=== PATIENT | male | born 1965 | race Caucasian/White ===

== ENCOUNTER 2016-08-10 09:24 | Observation (INO) | payer BC, OTHER ==
[~2016-08-10] VITALS: Ht 182.9 cm; Wt 82.2 kg
[~2016-08-10 09:24] MED LIST: ALPR0.254 PO; ASPI81TA44 PO; ATOR40TA59 PO; FLUO40CA2 PO; LEVO75TA PO; MELO-150 PO; QUET300T5 PO; RANI150T2 PO; SIMV40TA3 PO
--- NOTE | 2016-08-10 09:59 | EKG ---
[facility] [address] [place] [address] Test Date: 2016-08-10 Test Time: 09:34:04 Pat Name: BORA MCLEAN Department: Room: Gender: M Store Operations Specialist: : 1965 Requested By: MIKE AVELAR Order Number: [id number] Reading MD: Measurements Intervals [place] Rate: 85 P: 50 CT: 158 QRS: 19 QRSD: 68 T: 54 QT: 358 QTc: 431 Interpretive Statements SINUS RHYTHM NORMAL ECG RI6.01 Unconfirmed report No previous ECG available for comparison
[2016-08-10 10:09] LABS: BASO % 1 % (0-3); EOS % 2 % (0-3); HEMATOCRIT 43.5 % (39.0-53.0); HEMOGLOBIN 14.9 g/dL (13.0-17.5); LYMPH # 1.5 x10^3/uL (1.0-4.8); LYMPH % 30 % (24-48); MEAN CORPUSCULAR HEMOGLOBIN 30 pg (25-35); MEAN CORPUSCULAR HGB CONC 34 g/dL (31-37); MEAN CORPUSCULAR VOLUME 87 fL (79-100); MONO % 13 % (0-9); NEUT % 55 % (31-73); PLATELET COUNT 236 x10^3/uL (140-400); RED BLOOD COUNT 4.99 x10^6/uL (4.30-5.70); RED CELL DISTRIBUTION WIDTH 13.2 % (11.5-14.5); WHITE BLOOD COUNT 4.9 x10^3/uL (4.0-11.0)
[2016-08-10 10:21] LABS: CALCIUM 9.3 mg/dL (8.5-10.1); CREATININE 1.3 mg/dL (0.7-1.3); GFR 58.9; POTASSIUM 4.3 mmol/L (3.5-5.1)
[2016-08-10 10:27] LABS: ALBUMIN/GLOBULIN RATIO 1.3 (1.0-1.7); TOTAL BILIRUBIN 0.5 mg/dL (0.2-1.0); TOTAL PROTEIN 7.2 g/dL (6.4-8.2)
[2016-08-10] MEDS ORDERED: NITROGLYCERIN SUBLINGUAL 0.4 MG BOTTLE OF 25. SL PRN (11:00)
[2016-08-10] MEDS ORDERED: ASPIRIN 81 MG TAB.CHEW PO ONE (11:00)
--- NOTE | 2016-08-10 11:33 | PHYS DOC ---
Past Medical History Past Medical History: CVA, Depression, PR Additional Past Medical Histor: SI, hyperthermia, heart murmur Past Surgical History: Appendectomy Additional Past Surgical Histo: ortho knee, Additional Information: quit smoking 2013 Alcohol Use: None Drug Use: None Adult General Chief Complaint Chief Complaint: CHEST PAIN HPI HPI Patient is a 50 year old male who presents with chest pain. According to patient he was walking to his neurology is office he started getting left-sided sharp substernal chest pain that did not radiate. He felt short of breath and stated when he walked he had to stop her to catch his breath. He denies any nausea vomiting or diaphoresis with this. He states the pain gets worse with deep breathing. He states he's had pain like this before. Review of Systems Review of Systems Constitutional: Denies fever or chills [] Eyes: Denies change in visual acuity, redness, or eye pain [] HENT: Denies nasal congestion or sore throat [] Respiratory: Denies cough or shortness of breath [] Cardiovascular: No additional information not addressed in HPI [] GI: Denies abdominal pain, nausea, vomiting, bloody stools or diarrhea [] : Denies dysuria or hematuria [] Musculoskeletal: Denies back pain or joint pain [] Integument: Denies rash or skin lesions [] Neurologic: Denies headache, focal weakness or sensory changes [] Endocrine: Denies polyuria or polydipsia [] Current Medications Current Medications Current Medications Medications (Trade) Dose Ordered Sig/Gala Start Time Stop Time Status Last Admin Dose Admin Aspirin (Children'S Aspirin) 324 mg 1X ONCE 08/10/16 11:00 08/10/16 11:01 DC 08/10/16 11:32 324 MG Morphine Sulfate 4 mg PRN Q15MIN PRN 08/10/16 13:15 08/11/16 13:14 08/10/16 13:44 4 MG Nitroglycerin (Nitrostat) 0.4 mg PRN Q5MIN PRN 08/10/16 11:00 08/10/16 11:32 0.4 MG Allergies Allergies Allergies Coded Allergies Type Severity Reaction Last Updated Verified No Known Drug Allergies 01/14/15 No Physical Exam Physical Exam Constitutional: Well developed, well nourished, no acute distress, non-toxic appearance. [] HENT: Normocephalic, atraumatic, bilateral external ears normal, oropharynx moist, no oral exudates, nose normal. [] Eyes: PERRLA, EOMI, conjunctiva normal, no discharge. [] Neck: Normal range of motion, no tenderness, supple, no stridor. [] Cardiovascular:Heart rate regular rhythm, no murmur [] Lungs & Thorax: Bilateral breath sounds clear to auscultation [] Abdomen: Bowel sounds normal, soft, no tenderness, no masses, no pulsatile masses. [] Skin: Warm, dry, no erythema, no rash. [] Back: No tenderness, no CVA tenderness. [] Extremities: No tenderness, no cyanosis, no clubbing, ROM intact, no edema. [] Neurologic: Alert and oriented X 3, normal motor function, normal sensory function, no focal deficits noted. [] Psychologic: Affect normal, judgement normal, mood normal. [] Current Patient Data Vital Signs Vital Signs Date Time Temp Pulse Resp B/P Pulse Ox O2 Delivery O2 Flow Rate FiO2 08/10/16 14:16 Room Air 08/10/16 13:45 63 16 107/73 100 08/10/16 09:33 97.8 97.8 Lab Values Laboratory Tests Test 08/10/16 09:50 White Blood Count 4.9x10^3/uL (4.0-11.0) Red Blood Count 4.99x10^6/uL (4.30-5.70) Hemoglobin 14.9g/dL (13.0-17.5) Hematocrit 43.5% (39.0-53.0) Mean Corpuscular Volume 87fL (79-100) Mean Corpuscular Hemoglobin 30pg (25-35) Mean Corpuscular Hemoglobin Concent 34g/dL (31-37) Red Cell Distribution Width 13.2% (11.5-14.5) Platelet Count 236x10^3/uL (140-400) Neutrophils (%) (Auto) 55% (31-73) Lymphocytes (%) (Auto) 30% (24-48) Monocytes (%) (Auto) 13% (0-9) H Eosinophils (%) (Auto) 2% (0-3) Basophils (%) (Auto) 1% (0-3) Neutrophils # (Auto) 2.7x10^3uL (1.8-7.7) Lymphocytes # (Auto) 1.5x10^3/uL (1.0-4.8) Monocytes # (Auto) 0.6x10^3/uL (0.0-1.1) Eosinophils # (Auto) 0.1x10^3/uL (0.0-0.7) Basophils # (Auto) 0.0x10^3/uL (0.0-0.2) D-Dimer (Jessica) < 0.27ug/mlFEU (0.00-0.50) Sodium Level 145mmol/L (136-145) Potassium Level 4.3mmol/L (3.5-5.1) Chloride Level 108mmol/L (98-107) H Carbon Dioxide Level 25mmol/L (21-32) Anion Gap 12 (6-14) Blood Urea Nitrogen 15mg/dL (8-26) Creatinine 1.3mg/dL (0.7-1.3) Estimated GFR (Cockcroft-Gault) 58.9 BUN/Creatinine Ratio 12 (6-20) Glucose Level 74mg/dL (70-99) Calcium Level 9.3mg/dL (8.5-10.1) Total Bilirubin 0.5mg/dL (0.2-1.0) Aspartate Amino Transferase (AST) 19U/L (15-37) Alanine Aminotransferase (ALT) 14U/L (16-63) L Alkaline Phosphatase 62U/L (46-116) Troponin I Quantitative < 0.017ng/mL (0.000-0.055) Total Protein 7.2g/dL (6.4-8.2) Albumin 4.0g/dL (3.4-5.0) Albumin/Globulin Ratio 1.3 (1.0-1.7) Laboratory Tests 08/10/16 09:50 Laboratory Tests 08/10/16 09:50 EKG EKG EKG shows normal sinus rhythm without any ST elevations or T-wave inversions, normal axis, as interpreted by me. Radiology/Procedures Radiology/Procedures [facility] [address] [place], [place] [id number] IMAGING REPORT Signed PATIENT: VINAYBORA L ACCOUNT: [id number] : 1965 LOCATION: ER AGE: 50 SEX: M EXAM STATUS: REG ER ORD. PHYSICIAN: TERRANCE CARRENO MD REASON: chest pain PROCEDURE: CHEST AP ONLY Exam performed: One view chest. Indication: chest pain Date of Service: 08/10/2016 3:13 PM Comparison: 01/26/16. Single AP upright portable view chest findings: Cardiomediastinal silhouette is within limits of normal. No acute infiltrates, effusion or pneumothorax is detected. The bony structures are normal. Impression: No acute cardiopulmonary process is detected. DICTATED and SIGNED BY: PATRICIO MOREAU MD DATE: 08/10/16 1350 CC: DEVANTE FINNEY MD; TERRANCE CARRENO MD ~ Impressions: Chest pain Course & Med Decision Making Course & Med Decision Making Pertinent Labs and Imaging studies reviewed. (See chart for details) EKG, troponins, labs show any acute abnormalities, he was given full dose aspirin. He was brought to my attention the patient does have a history 7 years ago trying to commit suicide he denies any plans or thoughts of harming self or others currently. Patient's being admitted to hospitalists in stable condition. Dragon Disclaimer Dragon Disclaimer This electronic medical record was generated, in whole or in part, using a voice recognition dictation system. Departure Departure Impression: Primary Impression: Chest pain Disposition: ADMITTED INPATIENT Admitting Physician: Laila Olvera Condition: STABLE Referrals: DEVANTE FINNEY MD (PCP) TERRANCE CARRENO MD Aug 10, 2016 11:33
[2016-08-10] MEDS ORDERED: MORPHINE SULFATE 4 MG/ML DISP.SYRIN. IV/SQ PRN (13:15)
--- NOTE | 2016-08-10 13:52 | RAD ---
Exam performed: One view chest. Indication: chest pain Date of Service: 08/10/2016 3:13 PM Comparison: 01/26/16. Single AP upright portable view chest findings: Cardiomediastinal silhouette is within limits of normal. No acute infiltrates, effusion or pneumothorax is detected. The bony structures are normal. Impression: No acute cardiopulmonary process is detected.
[2016-08-10] MEDS ORDERED: MORPHINE SULFATE 4 MG/ML DISP.SYRIN. IV PRN (15:00)
[2016-08-10] MEDS ORDERED: ONDANSETRON PF 4 MG/2 ML VIAL. IV PRN ×2 (15:00→16:02)
--- NOTE | 2016-08-10 15:19 | ACF ---
Admission Forms Criteria CARDIOLOGY GRG Clinical Indications for Admission to Inpatient Care ( Place 'X' for any and all applicable criteria): Hospital admission is needed for appropriate care of the patient because of ANY ONE of the following (1): [ ] I. Hemodynamic instability as indicated by ALL of the following (1)(2)(3) (4)(5) [ ]a) Vital signs or other findings not as expected for chronic patient condition or baseline [ ]b) Instability indicated by ANY ONE of the following: [ ]i) Hypotension [ ]ii) Symptomatic Tachycardia unresponsive to treatment ( e.g., analgesia, fluids, sedation as indicated) [ ]iii) Inadequate perfusion indicated by ANY ONE of the following: [ ] 1) Lactic acidosis (> 2 mmol/L) [ ] 2) New abnormal capillary refill (> 3 seconds) [ ] 3) Reduced urine output [ ] 4) New altered mental status [ ]iv) Orthostatic vital sign changes unresponsive to treatment (e.g., fluids) [ ]v) IV inotropic or vasopressor medication required to maintain adequate blood pressure or perfusion [ ] II. Severe heart failure as indicated by ANY ONE of the following(17)(18) [ ]a) Respiratory distress [ ]b) Hypotension [ ]c) Anasarca (refractory to outpatient therapy) [ ]d) Cardiac arrhythmias of immediate concern [ ]e) Myocardial ischemia [ ] III. Cardiac arrhythmias or findings of immediate concern indicated by ANY ONE of the following (19)(20): [ ] a) Heart rhythms that are inherently dangerous or unstable indicated by ANY ONE of the following (21)(22)(23): [ ] i) Resuscitated ventricular fibrillation or cardiac arrest [ ] ii) Ventricular escape rhythm [ ] iii) Sustained ventricular tachycardia (30 seconds or more of ventricular rhythm at greater than 100 beats per minute) [ ] iv) Nonsustained ventricular tachycardia and ANY ONE of the following: [ ] 1) Suspected cardiac ischemia as cause or consequence of ventricular tachycardia [ ] 2) In setting of acute myocarditis [ ] b) Unstable cardiac conduction defects indicated by ANY ONE of the following(23)(24)(25) [ ] i) Type II second-degree atrioventricular block [ ]ii) Third-degree atrioventricular block [ ]iii) New-onset left bundle branch block with suspected myocardial ischemia [ ]c) Any heart rhythm and ANY ONE of the following (21)(22)(26)(27) (28) [ ] i) Continuous long-term ECG monitoring needed (e.g., initiation of drug requiring monitoring for more than 24 hours) [ ] ii) Patient has automatic implanted cardioverter defibrillator that is repeatedly firing, malfunctioning, or in need of immediate adjustment of settings beyond the scope of ambulatory or observation care [ ]d) Heart rhythms of concern due to ANY ONE of the following: [ ] i) Hypotension [ ] ii) Respiratory distress [ ] iii) Association with other significant symptoms (e.g., bradycardia with syncope or ongoing dizziness, supraventricular tachycardia with chest pain (14)(15)(17) [ ] IV. Monitoring for cardiac contusion beyond the scope of observation care needed [A](30)(31)(32) [ ] V. Surgical or device complication (e.g., valve replacement complication , pacemaker dysfunction) (35)(41)(44)(45)(46) [ ] . Inpatient palliative care needed. [B](49) Also use Inpatient Palliative Care Criteria [ ] VII. Nonbacterial thrombotic (marantic) endocarditis (36)(43)(47)(48) [X] VIII. Cardiology condition, symptom, or finding for which emergency and observation care has failed or are not considered appropriate. [ ] IX. Acute valvular disease requiring inpatient as indicated by ANY ONE of the following (41) [ ]a) Acute valvular regurgitation (42) [ ]b) Noninfectious valvulitis (43) [ ]c) Obstructive valve thrombosis [ ]d) Paravalvular leak [ ]e) Other significant valvular disorder remaining after emergency or observation level of care (as appropriate) [ ]X. Pericardial disease requiring inpatient treatment as indicated by ANY ONE of the following (33)(34)(35)(36)(37) [ ]a) Suspected tamponade (38)(39)(40) [ ]b) Hemopericardium [ ]c) Other significant pericardial disorder remaining after emergency or observation level of care (as appropriate) [ ] XI. Cardiac ischemia beyond scope of emergency and observation care. [ ] XII. Hypertension requiring inpatient treatment as indicated by ANY ONE of the following (6)(7)(8) [ ]a) SBP greater than 220 mm Hg or DBP greater than 120 mmHg despite treatment [ ]b) SBP greater than 140 mm Hg or DBP greater than 100 mm Hg with evidence of acute end organ damage as indicated by ANY ONE of the following [ ] i) Encephalopathy [ ] ii) Acute renal failure as indicated by new onset of ANY ONE of the following (9)(10)(11)(12)(13) [ ]1) 3-fold rise in serum creatinine from baseline [ ]2) Serum creatinine greater than 4 mg/dL ( 354 micromoles/L) with acute rise greater than 0.5 mg/dL (44.2 micromoles/L) [ ]3) Reduction of more than 75% in estimated glomerular filtration rate from baseline [ ]4) Estimated glomerular filtration rate less than 35 mL/min/1.73m2 (0.59 mL/sec/1.73m2) in child up to 18 years of age [ ]5) Cessation of urine output indicated by ALL of the following [ ]A. Adequate volume status [ ]B. Inadequate urine output as indicated by ANY ONE of the following [ ]a. Urine output less than 0.3 mL/kg/hr for 24 hours [ ]b. Anuria (urine output less than 0.1 mL/kg/hr) for 12 hours [ ] iii) Aortic dissection [ ] iv) Myocardial Ischemia [ ] v) Left ventricular heart failure [ ]vi) Retinal Hemorrhage [ ]vii) Other significant finding [ ]c) Hypertension in child requiring inpatient treatment as indicated by ALL of the following(14)(15)(16) [ ] i) Outpatient treatment not effective, not available, or not appropriate [ ]ii) SBP or DBP greater than 95th percentile for age [ ]iii) Evidence of acute end organ damage as indicated by ANY ONE of the following [ ]1) Altered mental status [ ]2) Acute renal failure as indicated by new onset of ANY ONE of the following(9)(10)(11)(12)(13) [ ]A. 3-fold rise in serum creatinine from baseline [ ]B. Serum creatinine greater than 4 mg/dL (354 micromoles/L) with acute rise greater than 0.5 mg/dL (44.2 micromoles/L) [ ]C. Reduction of more than 75% in estimated glomerular filtration rate from baseline [ ]D. Estimated glomerular filtration rate less than 35 mL/min/1.73m2 (0.59 mL/sec/1.73m2) in child up to 18 years of age [ ]E. Cessation of urine output indicated by ALL of the following [ ]a. Adequate volume status [ ]b. Inadequate urine output as indicated by ANY ONE of the following [ ]i) Urine output less than 0.3 mL/kg/hr for 24 hours [ ]ii) Anuria ( urine output less than 0.1 mL/kg/hr) for 12 hours [ ]3) Severe headache [ ]4) Visual disturbance [ ]5) Retinal hemorrhage [ ]6) Other significant finding [ ]XIII. Complications of transplanted heart indicated by ANY ONE of the following(61): [ ]a) Acute graft rejection requiring inpatient management (eg, intravenous immunosuppression)(62)(63) [ ]b) Acute graft heart failure indicated by ANY ONE of the following(64): [ ]i) Hemodynamic instability [ ]ii) Cardiac arrhythmias of immediate concern [ ]iii) Pulmonary edema that is very severe (eg, mechanical ventilation needed, imminent or likely, need for 100% oxygen to keep oxygen saturation above 90%) [ ]iv) Pulmonary edema that is persistent as indicated by ALL of the following: [ ]1) New need for oxygen therapy to keep oxygen saturation above 90% (or increased FiO2 need from baseline) [ ]2) Has not improved sufficiently with emergency department or observation care IV diuretics or other heart failure treatments[E] [ ]v) Altered mental status that is severe or persistent [ ]vi) Increased creatinine (new on laboratory test) with reduction of more than 50% in estimated glomerular filtration rate from baseline [ ]vii) Progressively (ongoing) rising creatinine (known from past laboratory test) with reduction of more than 25% in estimated glomerular filtration rate from baseline [ ]viii) Acute renal failure [ ]ix) Acute peripheral ischemia (eg, examination shows pulseless, cool, mottled, or cyanotic extremity) [ ]x) Pulmonary artery catheter monitoring needed [ ]xi) Other sign or symptom of heart failure requiring inpatient treatment (ie, too severe or not responsive to outpatient and observation care treatment) [ ]c) Infection requiring inpatient management (eg, Hemodynamic instability, need for intravenous antimicrobial treatment)(66)(67)(68)(69)(70) [ ]d) Cardiac allograft vasculopathy requiring inpatient management ( eg evidence of cardiac ischemia)(71) [ ]e) Other complication of transplanted heart (eg, stroke, severe pulmonary hypertension, severe valvular dysfunction) requiring inpatient management(72) The original [facility] content created by [facility] has been revised. The portions of the content which have been revised are identified through the use of italic text or in bold, and [facility] has neither reviewed nor approved the modified material. All other unmodified content is copyright [facility]. Please see references footnoted in the original [facility] edition 2016 Admission Criteria Met?: Yes HOLLIS BARNETT Aug 10, 2016 15:19
[2016-08-10 16:10] VITALS: BP 115/86
--- NOTE | 2016-08-10 16:12 | PDOC2 ---
CARDIAC CONSULT DATE OF CONSULT Date of Consult DATE: 08/10/16 TIME: 15:45 REASON FOR CONSULT Reason for Consult: Chest pain REFERRING PHYSICIAN Referring Physician: Debra SOURCE Source: Chart review, Patient HISTORY OF PRESENT ILLNESS HISTORY OF PRESENT ILLNESS This is a pleasant 50 yo male admitted for complains of lower sternal tightness. Reports that he was on his way to his neurologist when started feeling winded and had tightness in his chest. This actually got better with walking but felt dizziness during that time and his chest tightness is actually worse with deep breathing. He actually moved my hand away when i pressed his epigastric region and noting that it has been painful like that since CPR was done to him several yrs back. Denies any diaphoresis. NO recent falls injury. It is unclear about CAD but like he said CPR was done to him before. He does have a bicuspid aortic valve. Denies any recreational drugs. He is significant for depression/anxiety/seizures. He does take meloxicam daily. PAST MEDICAL HISTORY Cardiovascular: Hyperlipidemia, Other (bicuspid valve; ?cardiac arrest) CENTRAL NERVOUS SYSTEM: Migraine (without aura), Seizure GI: GERD Heme/Onc: Anemia NOS Psych: Anxiety, Depression, Other (conversion reaction) Musculoskeletal: Osteoarthritis Infectious disease: No pertinent hx ENT: No pertinent hx Renal/: No pertinent hx Endocrine: Hypothyroidism Dermatology: No pertinent hx PAST SURGICAL HISTORY Past Surgical History: Appendectomy, Other FAMILY HISTORY Family History noncontributory to CV SOCIAL HISTORY Smoke: No ALCOHOL: none Drugs: None Lives: with Family CURRENT MEDICATIONS CURRENT MEDICATIONS Current Medications Medications (Trade) Dose Ordered Sig/Gala Route PRN Reason Start Time Stop Time Status Last Admin Dose Admin Nitroglycerin (Nitrostat) 0.4 mg PRN Q5MIN PRN SL CHEST PAIN 08/10/16 11:00 08/10/16 11:32 Aspirin (Children'S Aspirin) 324 mg 1X ONCE PO 08/10/16 11:00 08/10/16 11:01 DC 08/10/16 11:32 Morphine Sulfate 4 mg PRN Q15MIN PRN IV/SQ PAIN GREATER THAN 3/10 08/10/16 13:15 08/11/16 13:14 08/10/16 13:44 ALLERGIES ALLERGIES: Coded Allergies: No Known Drug Allergies (Unverified , 01/14/15) ROS Review of System 14 point ROS evaluated with pertinent positives noted per HPI PHYSICAL EXAM General: Alert, Oriented X3, Cooperative, No acute distress HEENT: Atraumatic, Mucous membr. moist/pink Lungs: Clear to auscultation, Normal air movement Heart: Regular rate, Normal S1, Normal S2, Other (2/6 systolic murmur to LLS border) Abdomen: Soft, Other (epigastric tenderness with palpation) Extremities: No cyanosis, No edema Skin: No breakdown, No significant lesion Neuro: Normal speech, Sensation intact Psych/Mental Status: Mental status NL, Mood NL MUSCULOSKELETAL: Osteoarthritic changes both hands VITALS VITALS Vital Signs Date Time Temp Pulse Resp B/P Pulse Ox O2 Delivery O2 Flow Rate FiO2 08/10/16 14:56 62 14 119/82 100 Room Air 08/10/16 09:33 97.8 97.8 LABS Lab: Laboratory Tests Test 08/10/16 09:50 White Blood Count 4.9x10^3/uL (4.0-11.0) Red Blood Count 4.99x10^6/uL (4.30-5.70) Hemoglobin 14.9g/dL (13.0-17.5) Hematocrit 43.5% (39.0-53.0) Mean Corpuscular Volume 87fL (79-100) Mean Corpuscular Hemoglobin 30pg (25-35) Mean Corpuscular Hemoglobin Concent 34g/dL (31-37) Red Cell Distribution Width 13.2% (11.5-14.5) Platelet Count 236x10^3/uL (140-400) Neutrophils (%) (Auto) 55% (31-73) Lymphocytes (%) (Auto) 30% (24-48) Monocytes (%) (Auto) 13% (0-9) Eosinophils (%) (Auto) 2% (0-3) Basophils (%) (Auto) 1% (0-3) Neutrophils # (Auto) 2.7x10^3uL (1.8-7.7) Lymphocytes # (Auto) 1.5x10^3/uL (1.0-4.8) Monocytes # (Auto) 0.6x10^3/uL (0.0-1.1) Eosinophils # (Auto) 0.1x10^3/uL (0.0-0.7) Basophils # (Auto) 0.0x10^3/uL (0.0-0.2) D-Dimer (Jessica) < 0.27ug/mlFEU (0.00-0.50) Sodium Level 145mmol/L (136-145) Potassium Level 4.3mmol/L (3.5-5.1) Chloride Level 108mmol/L (98-107) Carbon Dioxide Level 25mmol/L (21-32) Anion Gap 12 (6-14) Blood Urea Nitrogen 15mg/dL (8-26) Creatinine 1.3mg/dL (0.7-1.3) Estimated GFR (Cockcroft-Gault) 58.9 BUN/Creatinine Ratio 12 (6-20) Glucose Level 74mg/dL (70-99) Calcium Level 9.3mg/dL (8.5-10.1) Total Bilirubin 0.5mg/dL (0.2-1.0) Aspartate Amino Transf (AST/SGOT) 19U/L (15-37) Alanine Aminotransferase (ALT/SGPT) 14U/L (16-63) Alkaline Phosphatase 62U/L (46-116) Troponin I Quantitative < 0.017ng/mL (0.000-0.055) Total Protein 7.2g/dL (6.4-8.2) Albumin 4.0g/dL (3.4-5.0) Albumin/Globulin Ratio 1.3 (1.0-1.7) STRESS TEST STRESS TEST Conclusion 1. Regadenoson cardioisotope stress test did not show any evidence of ischemia or infarct. 2. Normal left ventricular systolic function with ejection fraction calculated at 68%. 3. Low risk for cardiac events. DATE: 12/11/15 1211 ASSESSMENT/PLAN ASSESSMENT/PLAN 1. Atypical chest pain: Doubt ACS. Suspect GI vs MSK. EKG SR with no acute changes. 2. Hx of bicuspid valve 3. Hx of anxiety/depression/conversion disorder 4. Hx of bicuspid valve 5. Hypothyroidism 6. Chronic NSAID use: motrin/mobic/ASA 7. HLP Recommendations 1. TTE. Recent MPI 11/2015 unremarkable for ischemia 2. GI prophylaxis 3. Continue with ECASA 4. TSH, lipid panel 5. Troponin normal, continue to trend 6. Continue statin Problems: BATSHEVA POOLE GENERAL DENTIST Aug 10, 2016 16:12
[2016-08-10] MEDS ORDERED: ACETAMINOPHEN 500 MG TABLET PO PRN (16:15)
[2016-08-10] MEDS ORDERED: HYDR-2666 PO (16:21)
[2016-08-10] MEDS ORDERED: ALPR0.254 PO (16:21)
[2016-08-10] MEDS ORDERED: ALPR0.5T6 PO (16:21)
[2016-08-10] MEDS ORDERED: TOPI100T90 PO (16:21)
[2016-08-10] MEDS: PANTOPRAZOLE 40 MG TABLET. PO SCH (16:30)
[2016-08-10] MEDS ORDERED: ASPIRIN ENTERIC COATED 81 MG TABLET.DR. PO SCH (16:30)
--- NOTE | 2016-08-10 16:50 | CARD ---
APPROVED REPORT EXAM: Two-dimensional and M-mode echocardiogram with Doppler and color Doppler. Other Information Quality : Good INDICATION Chest Pain History of Bicuspid Aortic Valve 2D DIMENSIONS RVDd2.5 (2.9-3.5cm)Left Atrium(2D)3.0 (1.6-4.0cm) IVSd1.0 (0.7-1.1cm)Aortic Root(2D)4.1 (2.0-3.7cm) LVDd5.2 (3.9-5.9cm)LVOT Diameter2.1 (1.8-2.4cm) PWd1.0 (0.7-1.1cm)LVDs3.8 (2.5-4.0cm) FS (%) 27.1 %SV67.9 ml LVEF(%)52.4 (>50%) Aortic Valve AoV Peak Booker.95.3cm/sAoV VTI21.7cm AO Peak GR.3.6mmHgLVOT Peak Booker.68.6cm/s LVOT VTI 18.87cmAO Mean GR.2mmHg JOSIAH (VMAX)2.00ls4BGK (VTI)2.99cm2 AI P 1/2 Zxbu311dg Mitral Valve MV E Uxsjjhxn09.6cm/sMV DECEL PWXM100tz MV A Trzjmxfw23.6cm/sMV OSH20xg E/A Ratio1.5MVA (PHT)3.31cm2 TDI E/Lateral E'5.9E/Medial E'6.1 Tricuspid Valve TR P. Dpyfxovy516yz/sRAP MZAILORP4jtVn TR Peak Gr.07lyEuPEFS94elOo Pulmonary Vein S1 Vtyjdert89.8cm/sD2 Tfklolwg44.5cm/s PVa jmyjrbru764fftz LEFT VENTRICLE The left ventricle is normal size. There is normal left ventricular wall thickness. Left ventricle sy stolic function is low normal. The Ejection Fraction is 50-55%. There is normal LV segmental wall mot ion. Transmitral Doppler flow pattern is normal for age. RIGHT VENTRICLE The right ventricle is normal size. The right ventricular systolic function is normal. ATRIA The left atrium size is normal. The right atrium size is normal. The interatrial septum is intact wit h no evidence for an atrial septal defect or patent foramen ovale as noted on 2-D or Doppler imaging. AORTIC VALVE The aortic valve is bicuspid. Doppler and Color Flow revealed mild to moderate aortic regurgitation. There is no significant aortic valvular stenosis. MITRAL VALVE The mitral valve is normal in structure and function. There is no evidence of mitral valve prolapse. There is no mitral valve stenosis. Doppler and Color-flow revealed trace mitral regurgitation. TRICUSPID VALVE The tricuspid valve is normal in structure and function. Doppler and Color Flow revealed trace tricus pid regurgitation. The PA pressure was estimated at 21 mmHg. There is no tricuspid valve stenosis. PULMONIC VALVE The pulmonary valve is normal in structure and function. Doppler and Color Flow revealed mild pulmoni c valvular regurgitation. There is no pulmonic valvular stenosis. GREAT VESSELS The aortic root is moderately dilated at 4.2 cm. The ascending aorta is moderately dilated at 3.9 cm. The IVC is normal in size and collapses >50% with inspiration. PERICARDIAL EFFUSION There is no evidence of significant pericardial effusion. Critical Notification Critical Value: No <Conclusion> The left ventricle is normal size. Left ventricle systolic function is low normal. The Ejection Fraction is 50-55%. The aortic valve is bicuspid. Doppler and Color Flow revealed mild to moderate aortic regurgitation. There is no significant aortic valvular stenosis. Doppler and Color-flow revealed trace mitral regurgitation. Doppler and Color Flow revealed trace tricuspid regurgitation. The PA pressure was estimated at 21 mmHg. The aortic root is moderately dilated at 4.2 cm. The ascending aorta is moderately dilated at 3.9 cm.
--- NOTE | 2016-08-10 17:48 | PDOC1 ---
History and Physical Date of Admission Date of Admission DATE: 08/10/16 TIME: 17:44 Identification/Chief Complaint Chief Complaint chest pain Source Source: Caregiver, Chart review, Patient History of Present Illness History of Present Illness 50 y.o male who follows with our neurology grp for severe headaches, possibly migraine? on topamax, was in neurology clinic today, getting meds refilled, but had left sided to midsternal CP at rest, some SOA, maybe broke out in sweats, got him real worried, Very slow to speech and not the best historian. Labs ok, BUt he does have hx [place] in the past but no stents, Hx [place], CVA (did HH rehab, no residual deficits), depression on antidepressants. Pt admitted for r/o ACS Pt watching tv, CP free. Echo already done as ordered by cards Past Medical History Cardiovascular: Hyperlipidemia, Other (bicuspid valve; ?cardiac arrest) CENTRAL NERVOUS SYSTEM: Migraine (without aura), Seizure GI: GERD Heme/Onc: Anemia NOS Psych: Anxiety, Depression, Other (conversion reaction) Musculoskeletal: Osteoarthritis Infectious disease: No pertinent hx ENT: No pertinent hx Renal/: No pertinent hx Endocrine: Hypothyroidism Dermatology: No pertinent hx Past Surgical History Past Surgical History: Appendectomy, Other Family History Family History: No Significant Social History Smoke: No ALCOHOL: none Drugs: None Current Problem List Problem List Problems Medical Problems: (1) Chest pain Status: Acute Problems: Current Medications Current Medications Current Medications Nitroglycerin (Nitrostat) 0.4 mg PRN Q5MIN PRN SL CHEST PAIN Last administered on 08/10/16 11:32; Start 08/10/16 at 11:00 Aspirin (Children'S Aspirin) 324 mg 1X ONCE PO Last administered on 08/10/16 11:32; Start 08/10/16 at 11:00; Stop 08/10/16 at 11:01; Status DC Morphine Sulfate 4 mg PRN Q15MIN PRN IV/SQ PAIN GREATER THAN 3/10 Last administered on 08/10/16 13:44; Start 08/10/16 at 13:15; Stop 08/11/16 at 13:14 Ondansetron HCl (Zofran) 4 mg PRN Q8HRS PRN IV NAUSEA/VOMITING; Start 08/10/16 at 15:00; Stop 08/10/16 at 16:03; Status DC Morphine Sulfate 4 mg PRN Q2HR PRN IV PAIN; Start 08/10/16 at 15:00; Stop 08/11 at 14:59 Ondansetron HCl (Zofran) 4 mg PRN Q6HRS PRN IV NAUSEA/VOMITING; Start 08/10/16 at 16:02 Acetaminophen (Tylenol) 500 mg PRN Q6HRS PRN PO MILD PAIN / TEMP; Start at 16:15 Aspirin (Ecotrin) 81 mg DAILYWBKFT PO ; Start 08/10/16 at 16:30; Stop 08/10/16 at 16:30; Status DC Pantoprazole Sodium (Protonix) 40 mg DAILYAC PO ; Start 08/10/16 at 16:30 Simvastatin (Zocor) 40 mg QHS PO ; Start 08/10/16 at 21:00 Aspirin (Ecotrin) 81 mg DAILYWBKFT PO ; Start 08/11/16 at 08:00 Alprazolam (Xanax) 0.75 mg TID PO ; Start 08/10/16 at 21:00 Alprazolam (Xanax) 0.75 mg TID PO ; Start 08/10/16 at 21:00; Status UNV Alprazolam (Xanax) 0.75 mg DAILY PO ; Start 08/11/16 at 09:00; Status UNV Aspirin (Children'S Aspirin) 81 mg DAILYWBKFT PO ; Start 08/11/16 at 08:00; Status UNV Atorvastatin Calcium (Lipitor) 40 mg QHS PO ; Start 08/10/16 at 21:00; Status UNV Acetaminophen/ Hydrocodone Bitart (Lortab 5/325) 1 tab PRN Q6HRS PRN PO PAIN; Start 08/10/16 at 17:00 Levothyroxine Sodium (Synthroid) 75 mcg DAILY07 PO ; Start 08/11/16 at 07:00 Topiramate (Topamax) 100 mg QHS PO ; Start 08/10/16 at 21:00 Fluoxetine HCl (Prozac) 20 mg DAILY PO ; Start 08/11/16 at 09:00 Meloxicam (Mobic) 15 mg DAILY PO ; Start 08/11/16 at 09:00 Quetiapine Fumarate (SEROquel) 300 mg QHS PO ; Start 08/10/16 at 21:00 Famotidine (Pepcid) 20 mg BID PO ; Start 08/10/16 at 21:00 Active Scripts Active Synthroid (Levothyroxine Sodium) 75 Mcg Tablet 1 Tab PO DAILY Children's Aspirin (Aspirin) 81 Mg Tab.chew 81 Mg PO DAILYWBKFT Atorvastatin Calcium 40 Mg Tablet 40 Mg PO QHS Reported Hydrocodone-Apap 5-325 (Hydrocodone Bit/Acetaminophen) 1 Each Tablet 1 Tab PO PRN Q6HRS PRN Topiramate 100 Mg Tablet 1 Tab PO QHS Alprazolam 0.5 Mg Tablet 1 Tab PO DAILY Alprazolam 0.25 Mg Tablet 1 Tab PO TID Seroquel (Quetiapine Fumarate) 300 Mg Tablet 1 Tab PO QHS Synthroid (Levothyroxine Sodium) 75 Mcg Tablet 1 Tab PO DAILY Ranitidine Hcl 150 Mg Tablet 1 Tab PO BID Alprazolam 0.25 Mg Tablet 1 Tab PO TID Fluoxetine Hcl 40 Mg Capsule 1 Cap PO DAILYWBKFT Meloxicam 15 Mg Tablet 1 Tab PO DAILY Simvastatin 40 Mg Tablet 40 Mg PO DAILY Allergies Allergies: Coded Allergies: No Known Drug Allergies (Unverified , 01/14/15) ROS General: No: Appetite, Chills, Fatigue, Malaise, Night Sweats, Other PSYCHOLOGICAL ROS: No: Anxiety, Behavioral Disorder, Concentration difficultie , Decreased libido, Depression, Disorientation, Hallucinations, Hostility, Irritablity, Memory difficulties, Mood Swings, Obsessive thoughts, Other, Physical abuse, Sexual abuse, Sleep disturbances, Suicidal ideation Eyes: No Blurry vision, No Decreased vision, No Double vision, No Dry eyes, No Excessive tearing, No Eye Pain, No Itchy Eyes, No Loss of vision, No Other, No Photophobia, No Scotomata, No Uses contacts, No Uses glasses HEENT: No: Epistaxis, Heacaches, Hearing change, Nasal congestion, Nasal discharge, Oral lesions, Other, Sinus pain, Sneezing, Snoring, Sore Throat, Tinnitus, Vertigo, Visual Changes, Vocal changes ALLERGY AND IMMUNOLOGY: No: Hives, Insect Bite Sensitivity, Itchy/Watery Eyes, Nasal Congestion, Other, Post Nasal Drip, Seasonal Allergies Hematological and Lymphatic: No: Bleeding Problems, Blood Clots, Blood Transfusions, Brusing, Night Sweats, Other, Pallor, Swollen Lymph Nodes ENDOCRINE: No: Breast Changes, Galactorrhea, Hair Pattern Changes, Hot Flashes , Malaise/lethargy, Mood Swings, Other, Palpitations, Polydipsia/polyuria, Skin Changes, Temperature Intolerance, Unexpected Weight Changes Breast: No New/Changing Breast Lumps, No Nipple changes, No Nipple discharge, No Other Respiratory: YES: Shortness of breath Cardiovascular: yes Chest Pain Gastrointestinal: No Abdominal Pain, No Constipation, No Diarrhea, No Hematochezia, No Melena, No Nausea, No Other, No Vomiting Genitourinary: No , No , No , No , No , No , No , No Discharge, No Dysuria, No Flank Pain, No Frequency, No Hematuria, No Incontinence, No Other, No Pain, No Retention, No Urgency Musculoskeletal: No Gait Disturbance, No Joint Pain, No Joint Stiffness, No Joint Swelling, No Muscle Pain, No Muscular Weakness, No Other, No Pain In:, No Swelling In: Neurological: Yes Headaches Skin: No Acne, No Dry Skin, No Eczema, No Hair Changes, No Lumps, No Mole Changes, No Mottling, No Nail Changes, No Other, No Pruritus, No Rash, No Skin Lesion Changes Physical Exam General: Alert, Oriented X3, Cooperative, No acute distress HEENT: Atraumatic, PERRLA, EOMI Lungs: Clear to auscultation, Normal air movement Heart: S1S2, RRR, no thrills, no rubs, no gallops, no murmurs Cardiovascular: S1, S2 Breasts: Normal, No suspicious masses Abdomen: Normal bowel sounds, Soft, No tenderness, No hepatosplenomegaly, No masses Male Genitals Exam: normal genitalia, normal prostate Rectal Exam: not examined PELVIC: Nml ext genitalia Extremities: No clubbing, No cyanosis, No edema, Normal pulses, No tenderness/ swelling Skin: No rashes, No breakdown, No significant lesion Neuro: Normal gait, Normal speech, Strength at 5/5 X4 ext, Normal tone, Sensation intact, Cranial nerves 3-12 NL, Reflexes 2+ Vitals Vitals Vital Signs Date Time Temp Pulse Resp B/P Pulse Ox O2 Delivery O2 Flow Rate FiO2 08/10/16 16:10 96.1 61 17 115/86 100 Room Air 96.1 Labs Labs Laboratory Tests Test 2/27/17 09:50 White Blood Count 4.9x10^3/uL (4.0-11.0) Red Blood Count 4.99x10^6/uL (4.30-5.70) Hemoglobin 14.9g/dL (13.0-17.5) Hematocrit 43.5% (39.0-53.0) Mean Corpuscular Volume 87fL (79-100) Mean Corpuscular Hemoglobin 30pg (25-35) Mean Corpuscular Hemoglobin Concent 34g/dL (31-37) Red Cell Distribution Width 13.2% (11.5-14.5) Platelet Count 236x10^3/uL (140-400) Neutrophils (%) (Auto) 55% (31-73) Lymphocytes (%) (Auto) 30% (24-48) Monocytes (%) (Auto) 13% (0-9) Eosinophils (%) (Auto) 2% (0-3) Basophils (%) (Auto) 1% (0-3) Neutrophils # (Auto) 2.7x10^3uL (1.8-7.7) Lymphocytes # (Auto) 1.5x10^3/uL (1.0-4.8) Monocytes # (Auto) 0.6x10^3/uL (0.0-1.1) Eosinophils # (Auto) 0.1x10^3/uL (0.0-0.7) Basophils # (Auto) 0.0x10^3/uL (0.0-0.2) D-Dimer (Jessica) < 0.27ug/mlFEU (0.00-0.50) Sodium Level 145mmol/L (136-145) Potassium Level 4.3mmol/L (3.5-5.1) Chloride Level 108mmol/L (98-107) Carbon Dioxide Level 25mmol/L (21-32) Anion Gap 12 (6-14) Blood Urea Nitrogen 15mg/dL (8-26) Creatinine 1.3mg/dL (0.7-1.3) Estimated GFR (Cockcroft-Gault) 58.9 BUN/Creatinine Ratio 12 (6-20) Glucose Level 74mg/dL (70-99) Calcium Level 9.3mg/dL (8.5-10.1) Total Bilirubin 0.5mg/dL (0.2-1.0) Aspartate Amino Transf (AST/SGOT) 19U/L (15-37) Alanine Aminotransferase (ALT/SGPT) 14U/L (16-63) Alkaline Phosphatase 62U/L (46-116) Troponin I Quantitative < 0.017ng/mL (0.000-0.055) Total Protein 7.2g/dL (6.4-8.2) Albumin 4.0g/dL (3.4-5.0) Albumin/Globulin Ratio 1.3 (1.0-1.7) Thyroid Stimulating Hormone (TSH) 2.582uIU/mL (0.358-3.74) Laboratory Tests Test 08/10/16 09:50 White Blood Count 4.9x10^3/uL (4.0-11.0) Red Blood Count 4.99x10^6/uL (4.30-5.70) Hemoglobin 14.9g/dL (13.0-17.5) Hematocrit 43.5% (39.0-53.0) Mean Corpuscular Volume 87fL (79-100) Mean Corpuscular Hemoglobin 30pg (25-35) Mean Corpuscular Hemoglobin Concent 34g/dL (31-37) Red Cell Distribution Width 13.2% (11.5-14.5) Platelet Count 236x10^3/uL (140-400) Neutrophils (%) (Auto) 55% (31-73) Lymphocytes (%) (Auto) 30% (24-48) Monocytes (%) (Auto) 13% (0-9) Eosinophils (%) (Auto) 2% (0-3) Basophils (%) (Auto) 1% (0-3) Neutrophils # (Auto) 2.7x10^3uL (1.8-7.7) Lymphocytes # (Auto) 1.5x10^3/uL (1.0-4.8) Monocytes # (Auto) 0.6x10^3/uL (0.0-1.1) Eosinophils # (Auto) 0.1x10^3/uL (0.0-0.7) Basophils # (Auto) 0.0x10^3/uL (0.0-0.2) D-Dimer (Jessica) < 0.27ug/mlFEU (0.00-0.50) Sodium Level 145mmol/L (136-145) Potassium Level 4.3mmol/L (3.5-5.1) Chloride Level 108mmol/L (98-107) Carbon Dioxide Level 25mmol/L (21-32) Anion Gap 12 (6-14) Blood Urea Nitrogen 15mg/dL (8-26) Creatinine 1.3mg/dL (0.7-1.3) Estimated GFR (Cockcroft-Gault) 58.9 BUN/Creatinine Ratio 12 (6-20) Glucose Level 74mg/dL (70-99) Calcium Level 9.3mg/dL (8.5-10.1) Total Bilirubin 0.5mg/dL (0.2-1.0) Aspartate Amino Transf (AST/SGOT) 19U/L (15-37) Alanine Aminotransferase (ALT/SGPT) 14U/L (16-63) Alkaline Phosphatase 62U/L (46-116) Troponin I Quantitative < 0.017ng/mL (0.000-0.055) Total Protein 7.2g/dL (6.4-8.2) Albumin 4.0g/dL (3.4-5.0) Albumin/Globulin Ratio 1.3 (1.0-1.7) Thyroid Stimulating Hormone (TSH) 2.582uIU/mL (0.358-3.74) VTE Prophylaxis Ordered VTE Prophylaxis Devices: Yes VTE Pharmacological Prophylaxi: Yes Assessment/Plan Assessment/Plan 1. CP r.o ACS in an adult at rest 2, Hx [place], CVA with no residuals 3. Depression NOS on antidepressants 4. Migraine headaches on topamax PLAN: Echo ff up PT/OT Dw pt TATYANA BEST MD Aug 10, 2016 17:48
[2016-08-10] MEDS: HYDROCODONE/APAP 5/325MG TABLET. PO PRN (17:49)
[2016-08-10 19:16] VITALS: BP 134/103
[2016-08-10] MEDS: FAMOTIDINE 20 MG TABLET. PO SCH (20:47)
[2016-08-10] MEDS: ALPRAZOLAM 0.25 MG TABLET PO SCH (20:47)
[2016-08-10] MEDS ORDERED: ALPRAZOLAM 0.25 MG TABLET PO SCH (21:00)
[2016-08-10] MEDS ORDERED: TOPIRAMATE 100 MG TABLET. PO SCH (21:00)
[2016-08-10] MEDS ORDERED: SIMVASTATIN 40 MG TABLET. PO SCH (21:00)
[2016-08-10] MEDS ORDERED: QUEtiapine 100 MG TABLET. PO SCH (21:00)
[2016-08-10] MEDS ORDERED: ATORVASTATIN CALCIUM 40 MG TABLET. PO SCH (21:00)
[2016-08-10 23:40] VITALS: BP 105/65
[2016-08-11 03:00] VITALS: BP 108/67
[2016-08-11 04:22] LABS: BASO % 1 % (0-3); EOS % 2 % (0-3); HEMATOCRIT 39.8 % (39.0-53.0); HEMOGLOBIN 13.6 g/dL (13.0-17.5); LYMPH # 2.3 x10^3/uL (1.0-4.8); LYMPH % 44 % (24-48); MEAN CORPUSCULAR HEMOGLOBIN 30 pg (25-35); MEAN CORPUSCULAR HGB CONC 34 g/dL (31-37); MEAN CORPUSCULAR VOLUME 88 fL (79-100); MONO % 10 % (0-9); NEUT % 44 % (31-73); PLATELET COUNT 214 x10^3/uL (140-400); RED CELL DISTRIBUTION WIDTH 13.2 % (11.5-14.5); WHITE BLOOD COUNT 5.2 x10^3/uL (4.0-11.0)
[2016-08-11 04:33] LABS: CALCIUM 8.4 mg/dL (8.5-10.1); CREATININE 1.4 mg/dL (0.7-1.3); GFR 54.1; POTASSIUM 3.7 mmol/L (3.5-5.1)
[2016-08-11 04:42] LABS: CHOLESTEROL/HDL RATIO 4.2
[2016-08-11 07:00] VITALS: BP 111/81
[2016-08-11] MEDS ORDERED: LEVOTHYROXINE 75 MCG TABLET PO SCH (07:00)
[2016-08-11] MEDS ORDERED: ASPIRIN 81 MG TAB.CHEW PO SCH (08:00)
[2016-08-11] MEDS ORDERED: ASPIRIN ENTERIC COATED 81 MG TABLET.DR. PO SCH (08:00)
[2016-08-11] MEDS: PANTOPRAZOLE 40 MG TABLET. PO SCH (08:22)
[2016-08-11] MEDS: HYDROCODONE/APAP 5/325MG TABLET. PO PRN ×2 (08:22→15:32)
[2016-08-11] MEDS: FAMOTIDINE 20 MG TABLET. PO SCH (08:24)
[2016-08-11] MEDS: ALPRAZOLAM 0.25 MG TABLET PO SCH ×2 (08:25→14:00)
[2016-08-11] MEDS ORDERED: ALPRAZOLAM 0.5 MG TABLET PO SCH (09:00)
[2016-08-11] MEDS ORDERED: FLUOXETINE HCL 20 MG CAPSULE PO SCH (09:00)
[2016-08-11] MEDS ORDERED: MELOXICAM 7.5 MG TABLET PO SCH (09:00)
--- NOTE | 2016-08-11 09:33 | PDOC ---
CARDIO Progress Notes Date and Time Date of Service 08/11/2016 Time of Evaluation 0925 Subjective Subjective: No shortness of breath, No Palpitations, No Dizziness, Other (CP overnight but less episodes) Vitals Vitals Vital Signs Date Time Temp Pulse Resp B/P Pulse Ox O2 Delivery O2 Flow Rate FiO2 08/11/16 08:22 98 Room Air 08/11/16 07:00 97.9 63 18 111/81 97.9 Weight Weight [ ] Input and Output Intake and Output Intake and Output 08/11/16 07:00 Intake Total 200 ml Balance 200 ml Intake Oral 200 ml Laboratory Labs Laboratory Tests Test 08/10/16 09:50 08/10/16 20:45 08/11/16 03:30 White Blood Count 4.9x10^3/uL (4.0-11.0) 5.2x10^3/uL (4.0-11.0) Red Blood Count 4.99x10^6/uL (4.30-5.70) 4.50x10^6/uL (4.30-5.70) Hemoglobin 14.9g/dL (13.0-17.5) 13.6g/dL (13.0-17.5) Hematocrit 43.5% (39.0-53.0) 39.8% (39.0-53.0) Mean Corpuscular Volume 87fL (79-100) 88fL (79-100) Mean Corpuscular Hemoglobin 30pg (25-35) 30pg (25-35) Mean Corpuscular Hemoglobin Concent 34g/dL (31-37) 34g/dL (31-37) Red Cell Distribution Width 13.2% (11.5-14.5) 13.2% (11.5-14.5) Platelet Count 236x10^3/uL (140-400) 214x10^3/uL (140-400) Neutrophils (%) (Auto) 55% (31-73) 44% (31-73) Lymphocytes (%) (Auto) 30% (24-48) 44% (24-48) Monocytes (%) (Auto) 13% (0-9) 10% (0-9) Eosinophils (%) (Auto) 2% (0-3) 2% (0-3) Basophils (%) (Auto) 1% (0-3) 1% (0-3) Neutrophils # (Auto) 2.7x10^3uL (1.8-7.7) 2.3x10^3uL (1.8-7.7) Lymphocytes # (Auto) 1.5x10^3/uL (1.0-4.8) 2.3x10^3/uL (1.0-4.8) Monocytes # (Auto) 0.6x10^3/uL (0.0-1.1) 0.5x10^3/uL (0.0-1.1) Eosinophils # (Auto) 0.1x10^3/uL (0.0-0.7) 0.1x10^3/uL (0.0-0.7) Basophils # (Auto) 0.0x10^3/uL (0.0-0.2) 0.0x10^3/uL (0.0-0.2) D-Dimer (Jessica) < 0.27ug/mlFEU (0.00-0.50) Sodium Level 145mmol/L (136-145) 142mmol/L (136-145) Potassium Level 4.3mmol/L (3.5-5.1) 3.7mmol/L (3.5-5.1) Chloride Level 108mmol/L (98-107) 107mmol/L (98-107) Carbon Dioxide Level 25mmol/L (21-32) 25mmol/L (21-32) Anion Gap 12 (6-14) 10 (6-14) Blood Urea Nitrogen 15mg/dL (8-26) 17mg/dL (8-26) Creatinine 1.3mg/dL (0.7-1.3) 1.4mg/dL (0.7-1.3) Estimated GFR (Cockcroft-Gault) 58.9 54.1 BUN/Creatinine Ratio 12 (6-20) Glucose Level 74mg/dL (70-99) 90mg/dL (70-99) Calcium Level 9.3mg/dL (8.5-10.1) 8.4mg/dL (8.5-10.1) Total Bilirubin 0.5mg/dL (0.2-1.0) Aspartate Amino Transf (AST/SGOT) 19U/L (15-37) Alanine Aminotransferase (ALT/SGPT) 14U/L (16-63) Alkaline Phosphatase 62U/L (46-116) Troponin I Quantitative < 0.017ng/mL (0.000-0.055) < 0.017ng/mL (0.000-0.055) < 0.017ng/mL (0.000-0.055) Total Protein 7.2g/dL (6.4-8.2) Albumin 4.0g/dL (3.4-5.0) Albumin/Globulin Ratio 1.3 (1.0-1.7) Thyroid Stimulating Hormone (TSH) 2.582uIU/mL (0.358-3.74) Triglycerides Level 139mg/dL (0-150) Cholesterol Level 135mg/dL (0-200) LDL Cholesterol, Calculated 75mg/dL (0-100) VLDL Cholesterol, Calculated 28mg/dL (0-40) HDL Cholesterol 32mg/dL (40-60) Cholesterol/HDL Ratio 4.2 Physical Exam HEENT: Neck Supple W Full Motion Chest: Symmetric LUNGS: Clear to Auscultation Heart: S1S2, RRR Abdomen: Soft N/T Extremities: No Calf Tenderness Neurology: alert, oriented, follow commands Assessment Assessment 1. Atypical chest pain: still having CP overnight. Suspect GI 2. Hx of bicuspid valve 3. Hx of anxiety/depression/conversion disorder 4. Hx of bicuspid valve 5. Hypothyroidism 6. Chronic NSAID use: motrin/mobic/ASA 7. HLP: controlled Recommendations 1. TTE. Proceed with MPI today and DC if unremarkable 2. GI prophylaxis 3. Continue with ECASA 4. Continue secondary prevention BATSHEVA POOLE APRN Aug 11, 2016 09:33
[2016-08-11] MEDS ORDERED: REGADENOSON 0.4 MG/5 ML DISP.SYRIN. IV ONE (10:15)
--- NOTE | 2016-08-11 10:45 | PDOC ---
PROGRESS NOTES Chief Complaint Chief Complaint Assessment/Plan 1. 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 Depression NOS on antidepressants 4. 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 Vitals Vitals Vital Signs Date Time Temp Pulse Resp B/P Pulse Ox O2 Delivery O2 Flow Rate FiO2 08/11/16 08:22 98 Room Air 08/11/16 07:00 97.9 63 18 111/81 97.9 Physical Exam General: Alert, Oriented X3, Cooperative, No acute distress Heart: Regular rate, Normal S1, Normal S2, Other (2/6 systolic murmur to LLS border) Lungs: Clear Abdomen: Normal bowel sounds, Soft, No tenderness, No hepatosplenomegaly, No masses Extremities: No clubbing, No cyanosis, No edema, Normal pulses, No tenderness/ swelling Skin: No rashes, No breakdown, No significant lesion Labs LABS Laboratory Tests Test 08/10/16 20:45 08/11/16 03:30 Troponin I Quantitative < 0.017ng/mL (0.000-0.055) < 0.017ng/mL (0.000-0.055) White Blood Count 5.2x10^3/uL (4.0-11.0) Red Blood Count 4.50x10^6/uL (4.30-5.70) Hemoglobin 13.6g/dL (13.0-17.5) Hematocrit 39.8% (39.0-53.0) Mean Corpuscular Volume 88fL (79-100) Mean Corpuscular Hemoglobin 30pg (25-35) Mean Corpuscular Hemoglobin Concent 34g/dL (31-37) Red Cell Distribution Width 13.2% (11.5-14.5) Platelet Count 214x10^3/uL (140-400) Neutrophils (%) (Auto) 44% (31-73) Lymphocytes (%) (Auto) 44% (24-48) Monocytes (%) (Auto) 10% (0-9) Eosinophils (%) (Auto) 2% (0-3) Basophils (%) (Auto) 1% (0-3) Neutrophils # (Auto) 2.3x10^3uL (1.8-7.7) Lymphocytes # (Auto) 2.3x10^3/uL (1.0-4.8) Monocytes # (Auto) 0.5x10^3/uL (0.0-1.1) Eosinophils # (Auto) 0.1x10^3/uL (0.0-0.7) Basophils # (Auto) 0.0x10^3/uL (0.0-0.2) Sodium Level 142mmol/L (136-145) Potassium Level 3.7mmol/L (3.5-5.1) Chloride Level 107mmol/L (98-107) Carbon Dioxide Level 25mmol/L (21-32) Anion Gap 10 (6-14) Blood Urea Nitrogen 17mg/dL (8-26) Creatinine 1.4mg/dL (0.7-1.3) Estimated GFR (Cockcroft-Gault) 54.1 Glucose Level 90mg/dL (70-99) Calcium Level 8.4mg/dL (8.5-10.1) Triglycerides Level 139mg/dL (0-150) Cholesterol Level 135mg/dL (0-200) LDL Cholesterol, Calculated 75mg/dL (0-100) VLDL Cholesterol, Calculated 28mg/dL (0-40) HDL Cholesterol 32mg/dL (40-60) Cholesterol/HDL Ratio 4.2 Review of Systems Review of Systems CP, headache, slow to speech Assessment and Plan Assessmemt and Plan Problems Medical Problems: (1) Chest pain Status: Acute Problems: Comment Review of Relevant I have reviewed the following items josseline (where applicable) has been applied. Labs Laboratory Tests Test 08/10/16 09:50 08/10/16 20:45 08/11/16 03:30 White Blood Count 4.9x10^3/uL (4.0-11.0) 5.2x10^3/uL (4.0-11.0) Red Blood Count 4.99x10^6/uL (4.30-5.70) 4.50x10^6/uL (4.30-5.70) Hemoglobin 14.9g/dL (13.0-17.5) 13.6g/dL (13.0-17.5) Hematocrit 43.5% (39.0-53.0) 39.8% (39.0-53.0) Mean Corpuscular Volume 87fL (79-100) 88fL (79-100) Mean Corpuscular Hemoglobin 30pg (25-35) 30pg (25-35) Mean Corpuscular Hemoglobin Concent 34g/dL (31-37) 34g/dL (31-37) Red Cell Distribution Width 13.2% (11.5-14.5) 13.2% (11.5-14.5) Platelet Count 236x10^3/uL (140-400) 214x10^3/uL (140-400) Neutrophils (%) (Auto) 55% (31-73) 44% (31-73) Lymphocytes (%) (Auto) 30% (24-48) 44% (24-48) Monocytes (%) (Auto) 13% (0-9) 10% (0-9) Eosinophils (%) (Auto) 2% (0-3) 2% (0-3) Basophils (%) (Auto) 1% (0-3) 1% (0-3) Neutrophils # (Auto) 2.7x10^3uL (1.8-7.7) 2.3x10^3uL (1.8-7.7) Lymphocytes # (Auto) 1.5x10^3/uL (1.0-4.8) 2.3x10^3/uL (1.0-4.8) Monocytes # (Auto) 0.6x10^3/uL (0.0-1.1) 0.5x10^3/uL (0.0-1.1) Eosinophils # (Auto) 0.1x10^3/uL (0.0-0.7) 0.1x10^3/uL (0.0-0.7) Basophils # (Auto) 0.0x10^3/uL (0.0-0.2) 0.0x10^3/uL (0.0-0.2) D-Dimer (Jessica) < 0.27ug/mlFEU (0.00-0.50) Sodium Level 145mmol/L (136-145) 142mmol/L (136-145) Potassium Level 4.3mmol/L (3.5-5.1) 3.7mmol/L (3.5-5.1) Chloride Level 108mmol/L (98-107) 107mmol/L (98-107) Carbon Dioxide Level 25mmol/L (21-32) 25mmol/L (21-32) Anion Gap 12 (6-14) 10 (6-14) Blood Urea Nitrogen 15mg/dL (8-26) 17mg/dL (8-26) Creatinine 1.3mg/dL (0.7-1.3) 1.4mg/dL (0.7-1.3) Estimated GFR (Cockcroft-Gault) 58.9 54.1 BUN/Creatinine Ratio 12 (6-20) Glucose Level 74mg/dL (70-99) 90mg/dL (70-99) Calcium Level 9.3mg/dL (8.5-10.1) 8.4mg/dL (8.5-10.1) Total Bilirubin 0.5mg/dL (0.2-1.0) Aspartate Amino Transf (AST/SGOT) 19U/L (15-37) Alanine Aminotransferase (ALT/SGPT) 14U/L (16-63) Alkaline Phosphatase 62U/L (46-116) Troponin I Quantitative < 0.017ng/mL (0.000-0.055) < 0.017ng/mL (0.000-0.055) < 0.017ng/mL (0.000-0.055) Total Protein 7.2g/dL (6.4-8.2) Albumin 4.0g/dL (3.4-5.0) Albumin/Globulin Ratio 1.3 (1.0-1.7) Thyroid Stimulating Hormone (TSH) 2.582uIU/mL (0.358-3.74) Triglycerides Level 139mg/dL (0-150) Cholesterol Level 135mg/dL (0-200) LDL Cholesterol, Calculated 75mg/dL (0-100) VLDL Cholesterol, Calculated 28mg/dL (0-40) HDL Cholesterol 32mg/dL (40-60) Cholesterol/HDL Ratio 4.2 Laboratory Tests Test 08/10/16 20:45 08/11/16 03:30 Troponin I Quantitative < 0.017ng/mL (0.000-0.055) < 0.017ng/mL (0.000-0.055) White Blood Count 5.2x10^3/uL (4.0-11.0) Red Blood Count 4.50x10^6/uL (4.30-5.70) Hemoglobin 13.6g/dL (13.0-17.5) Hematocrit 39.8% (39.0-53.0) Mean Corpuscular Volume 88fL (79-100) Mean Corpuscular Hemoglobin 30pg (25-35) Mean Corpuscular Hemoglobin Concent 34g/dL (31-37) Red Cell Distribution Width 13.2% (11.5-14.5) Platelet Count 214x10^3/uL (140-400) Neutrophils (%) (Auto) 44% (31-73) Lymphocytes (%) (Auto) 44% (24-48) Monocytes (%) (Auto) 10% (0-9) Eosinophils (%) (Auto) 2% (0-3) Basophils (%) (Auto) 1% (0-3) Neutrophils # (Auto) 2.3x10^3uL (1.8-7.7) Lymphocytes # (Auto) 2.3x10^3/uL (1.0-4.8) Monocytes # (Auto) 0.5x10^3/uL (0.0-1.1) Eosinophils # (Auto) 0.1x10^3/uL (0.0-0.7) Basophils # (Auto) 0.0x10^3/uL (0.0-0.2) Sodium Level 142mmol/L (136-145) Potassium Level 3.7mmol/L (3.5-5.1) Chloride Level 107mmol/L (98-107) Carbon Dioxide Level 25mmol/L (21-32) Anion Gap 10 (6-14) Blood Urea Nitrogen 17mg/dL (8-26) Creatinine 1.4mg/dL (0.7-1.3) Estimated GFR (Cockcroft-Gault) 54.1 Glucose Level 90mg/dL (70-99) Calcium Level 8.4mg/dL (8.5-10.1) Triglycerides Level 139mg/dL (0-150) Cholesterol Level 135mg/dL (0-200) LDL Cholesterol, Calculated 75mg/dL (0-100) VLDL Cholesterol, Calculated 28mg/dL (0-40) HDL Cholesterol 32mg/dL (40-60) Cholesterol/HDL Ratio 4.2 Medications Current Medications Nitroglycerin (Nitrostat) 0.4 mg PRN Q5MIN PRN SL CHEST PAIN Last administered on 08/10/16 11:32; Start 08/10/16 at 11:00 Aspirin (Children'S Aspirin) 324 mg 1X ONCE PO Last administered on 08/10/16 11:32; Start 08/10/16 at 11:00; Stop 08/10/16 at 11:01; Status DC Morphine Sulfate 4 mg PRN Q15MIN PRN IV/SQ PAIN GREATER THAN 3/10 Last administered on 08/10/16 13:44; Start 08/10/16 at 13:15; Stop 08/11/16 at 13:14 Ondansetron HCl (Zofran) 4 mg PRN Q8HRS PRN IV NAUSEA/VOMITING; Start 08/10/16 at 15:00; Stop 08/10/16 at 16:03; Status DC Morphine Sulfate 4 mg PRN Q2HR PRN IV PAIN; Start 08/10/16 at 15:00; Stop 08/11 at 14:59 Ondansetron HCl (Zofran) 4 mg PRN Q6HRS PRN IV NAUSEA/VOMITING; Start 08/10/16 at 16:02 Acetaminophen (Tylenol) 500 mg PRN Q6HRS PRN PO MILD PAIN / TEMP; Start at 16:15 Aspirin (Ecotrin) 81 mg DAILYWBKFT PO ; Start 08/10/16 at 16:30; Stop 08/10/16 at 16:30; Status DC Pantoprazole Sodium (Protonix) 40 mg DAILYAC PO Last administered on 08/11/16 08:22; Start 08/10/16 at 16:30 Simvastatin (Zocor) 40 mg QHS PO Last administered on 08/10/16 20:47; Start at 21:00 Aspirin (Ecotrin) 81 mg DAILYWBKFT PO ; Start 08/11/16 at 08:00 Alprazolam (Xanax) 0.75 mg TID PO Last administered on 08/11/16 08:25; Start 08/10/16 at 21:00 Alprazolam (Xanax) 0.75 mg TID PO ; Start 08/10/16 at 21:00; Status UNV Alprazolam (Xanax) 0.75 mg DAILY PO ; Start 08/11/16 at 09:00; Status UNV Aspirin (Children'S Aspirin) 81 mg DAILYWBKFT PO ; Start 08/11/16 at 08:00; Status UNV Atorvastatin Calcium (Lipitor) 40 mg QHS PO ; Start 08/10/16 at 21:00; Status UNV Acetaminophen/ Hydrocodone Bitart (Lortab 5/325) 1 tab PRN Q6HRS PRN PO PAIN Last administered on 08/11/16 08:22; Start 08/10/16 at 17:00 Levothyroxine Sodium (Synthroid) 75 mcg DAILY07 PO Last administered on 08:24; Start 08/11/16 at 07:00 Topiramate (Topamax) 100 mg QHS PO Last administered on 08/10/16 20:47; Start 08/10/16 at 21:00 Fluoxetine HCl (Prozac) 20 mg DAILY PO Last administered on 08/11/16 08:24; Start 08/11/16 at 09:00 Meloxicam (Mobic) 15 mg DAILY PO Last administered on 08/11/16 08:23; Start at 09:00 Quetiapine Fumarate (SEROquel) 300 mg QHS PO Last administered on 08/10/16 20: 47; Start 08/10/16 at 21:00 Famotidine (Pepcid) 20 mg BID PO Last administered on 08/11/16 08:24; Start at 21:00 Regadenoson (Lexiscan) 0.4 mg 1X ONCE IV ; Start 08/11/16 at 10:15; Stop at 10:16; Status DC Active Scripts Active Synthroid (Levothyroxine Sodium) 75 Mcg Tablet 1 Tab PO DAILY Children's Aspirin (Aspirin) 81 Mg Tab.chew 81 Mg PO DAILYWBKFT Atorvastatin Calcium 40 Mg Tablet 40 Mg PO QHS Reported Hydrocodone-Apap 5-325 (Hydrocodone Bit/Acetaminophen) 1 Each Tablet 1 Tab PO PRN Q6HRS PRN Topiramate 100 Mg Tablet 1 Tab PO QHS Alprazolam 0.5 Mg Tablet 1 Tab PO DAILY Alprazolam 0.25 Mg Tablet 1 Tab PO TID Seroquel (Quetiapine Fumarate) 300 Mg Tablet 1 Tab PO QHS Synthroid (Levothyroxine Sodium) 75 Mcg Tablet 1 Tab PO DAILY Ranitidine Hcl 150 Mg Tablet 1 Tab PO BID Alprazolam 0.25 Mg Tablet 1 Tab PO TID Fluoxetine Hcl 40 Mg Capsule 1 Cap PO DAILYWBKFT Meloxicam 15 Mg Tablet 1 Tab PO DAILY Simvastatin 40 Mg Tablet 40 Mg PO DAILY Vitals/I & O Vital Sign - Last 24 Hours 08/10/16 08/10/16 08/10/16 08/10/16 11:30 11:32 11:47 13:44 Pulse 73 75 74 Resp 16 12 16 B/P 120/79 123/83 102/60 Pulse Ox 100 98 100 O2 Delivery Room Air Room Air Room Air 08/10/16 08/10/16 08/10/16 08/10/16 13:45 14:16 14:56 16:10 Temp 96.1 96.1 Pulse 63 62 61 Resp 16 14 17 B/P 107/73 119/82 115/86 Pulse Ox 100 100 100 O2 Delivery Room Air Room Air Room Air Room Air 08/10/16 08/10/16 08/10/16 08/10/16 17:49 18:49 19:16 20:00 Temp 97.7 97.7 Pulse 62 Resp 19 18 18 B/P 134/103 Pulse Ox 100 99 O2 Delivery Room Air Room Air Room Air Room Air 08/10/16 08/11/16 08/11/16 08/11/16 23:40 03:00 07:00 08:22 Temp 97.5 97.5 97.9 97.5 97.5 97.9 Pulse 61 73 63 Resp 18 18 18 B/P 105/65 108/67 111/81 Pulse Ox 94 94 98 98 O2 Delivery Room Air Room Air Room Air Room Air Intake and Output 08/10/16 08/10/1608/11/17 15:00 23:00 07:00 Intake Total 200 ml 0 ml Balance 200 ml 0 ml TATYANA BEST MD Aug 11, 2016 10:45
[2016-08-11 10:56] VITALS: BP 122/73
--- NOTE | 2016-08-11 14:10 | RAD ---
APPROVED REPORT Test Type: Pharmacological Stress Nurse/Tech: marya villarreal Test Indications: chest pain, SOA Cardiac History: PT UNABLE TO REMEBER WICH VALVE HAS AN ISSUE, SEE EHR Medications: SEE EHR Medical History: SEIZURE, STROKE, SEE EHR Resting ECG: SR Resting Heart Rate: 64 bpm Resting Blood Pressure: 108/64mmHg Pretest Chest Pain: No chest pain Nurse/Tech Notes LUNG SOUNDS CLEAR, S1S2 MURMUR. Consent: The procedure was explained to the patient in lay terms. Informed consent was witnessed. Juan M eout was entered into [employer]. History and Stress Test performed by MARYA VILLARREAL Pharm. Details Pharmacologic stress testing was performed using 0.4mg per 5ml of regadenoson given intravenously ove r 7-10 seconds. Stress Symptoms HEADACHE. POST EXERCISE Max HR: 87 bpm Max Blood Pressure: 110/62mmHg Chest Pain: No. Arrhythmia: No. ST Change: No. INTERPRETATION Stress EKG Conclusion: Baseline EKG showed sinus rhythm. No ischemic changes at peak stress. No arr hythmias. Imaging Protocol IMAGE PROTOCOL: Rest Tc-99m/stress Tc-99m 1 day Rest: Stress: Viability: Radiopharm.Tc99m [id number] Sestamibi Dose10.2mCi 34mCi Duration 15min. 10min. Img Date 08/11/2016 08/11/2016 Inj-Img [id number]. 60min. Rest Admin Site:IV - Left ForearmAdministrator:RT Vargas (R)(N) Stress Admin Site: IV - Left AntecubitalAdministrator: VANDANA Moon STRESS DATA End Diast. Vol.97.0mlAv. Heart Rate65.0bpm End Syst. Vol.28.0mlCO Index BSA0.0L/min Myocardial Rydo060.0gEject. Knqgttzf70.0% Stress Rates Pk. Fill Rate2.70EDV/secLVtime Pk. Fill 145.41msec Pk. Empty Rate3.66ESV/secLVtime Pk. Cpwdr156.09msec 06/16 Pk. Fill1.58EDV/sec Stress Scores Regional WT0.00Summed WT3.00 Regional WM0.00Summed WM0.00 Study quality was good. Left Ventricular size was Normal at Rest and Stress. Lung uptake was Normal. Left Ventricular ejection fraction is 71%. The rest and stress images show normal perfusion, normal contraction and thickening. LV Perf. Quant 17 Seg. SSS0.00 17 Seg. SRS2.00 17 Seg. SDS0.00 Stress Defect Extent (% LAD)0.00Rest Defect Extent (% LAD)0.60Rev. Defect Extent (% LAD)0.00 Stress Defect Extent (% LCX) 0.00Rest Defect Extent (% LCX)0.00Rev. Defect Extent (% LCX)0.00 Stress Defect Extent (% RCA)0.00Rest Defect Extent (% RCA)0.00Rev. Defect Extent (% RCA)0.00 Stress Defect Extent (% JINA)0.00Rest Defect Extent (% JINA)2.00Rev. Defect Extent (% JINA)0.00 Conclusion 1. Regadenoson cardioisotope stress test did not show any evidence of ischemia or infarct. 2. Normal left ventricular systolic function with ejection fraction calculated at 71%. 3. Low risk for cardiac events.
[2016-08-11 14:42] VITALS: BP 119/76
--- NOTE | 2016-08-11 18:02 | PDOC3 ---
Discharge Summary Visit Information Date of Admission: Aug 10, 2016 Date of Discharge: Aug 11, 2016 Admitting Diagnosis Comment: Assessment/Plan 1. 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 Depression NOS on antidepressants 4. Migraine headaches on topamax Final Diagnosis Problems Medical Problems: (1) Chest pain Status: Acute Brief Hospital Course Allergies Allergies Coded Allergies Type Severity Reaction Last Updated Verified No Known Drug Allergies 01/14/15 No Vital Signs Vital Signs Date Time Temp Pulse Resp B/P Pulse Ox O2 Delivery O2 Flow Rate FiO2 08/11/16 15:32 Room Air 08/11/16 14:42 97.5 61 18 119/76 98 97.5 Lab Results Laboratory Tests Test 08/10/16 09:50 08/10/16 20:45 08/11/16 03:30 White Blood Count 4.9x10^3/uL (4.0-11.0) 5.2x10^3/uL (4.0-11.0) Red Blood Count 4.99x10^6/uL (4.30-5.70) 4.50x10^6/uL (4.30-5.70) Hemoglobin 14.9g/dL (13.0-17.5) 13.6g/dL (13.0-17.5) Hematocrit 43.5% (39.0-53.0) 39.8% (39.0-53.0) Mean Corpuscular Volume 87fL (79-100) 88fL (79-100) Mean Corpuscular Hemoglobin 30pg (25-35) 30pg (25-35) Mean Corpuscular Hemoglobin Concent 34g/dL (31-37) 34g/dL (31-37) Red Cell Distribution Width 13.2% (11.5-14.5) 13.2% (11.5-14.5) Platelet Count 236x10^3/uL (140-400) 214x10^3/uL (140-400) Neutrophils (%) (Auto) 55% (31-73) 44% (31-73) Lymphocytes (%) (Auto) 30% (24-48) 44% (24-48) Monocytes (%) (Auto) 13% (0-9) 10% (0-9) Eosinophils (%) (Auto) 2% (0-3) 2% (0-3) Basophils (%) (Auto) 1% (0-3) 1% (0-3) Neutrophils # (Auto) 2.7x10^3uL (1.8-7.7) 2.3x10^3uL (1.8-7.7) Lymphocytes # (Auto) 1.5x10^3/uL (1.0-4.8) 2.3x10^3/uL (1.0-4.8) Monocytes # (Auto) 0.6x10^3/uL (0.0-1.1) 0.5x10^3/uL (0.0-1.1) Eosinophils # (Auto) 0.1x10^3/uL (0.0-0.7) 0.1x10^3/uL (0.0-0.7) Basophils # (Auto) 0.0x10^3/uL (0.0-0.2) 0.0x10^3/uL (0.0-0.2) D-Dimer (Jessica) < 0.27ug/mlFEU (0.00-0.50) Sodium Level 145mmol/L (136-145) 142mmol/L (136-145) Potassium Level 4.3mmol/L (3.5-5.1) 3.7mmol/L (3.5-5.1) Chloride Level 108mmol/L (98-107) 107mmol/L (98-107) Carbon Dioxide Level 25mmol/L (21-32) 25mmol/L (21-32) Anion Gap 12 (6-14) 10 (6-14) Blood Urea Nitrogen 15mg/dL (8-26) 17mg/dL (8-26) Creatinine 1.3mg/dL (0.7-1.3) 1.4mg/dL (0.7-1.3) Estimated GFR (Cockcroft-Gault) 58.9 54.1 BUN/Creatinine Ratio 12 (6-20) Glucose Level 74mg/dL (70-99) 90mg/dL (70-99) Calcium Level 9.3mg/dL (8.5-10.1) 8.4mg/dL (8.5-10.1) Total Bilirubin 0.5mg/dL (0.2-1.0) Aspartate Amino Transf (AST/SGOT) 19U/L (15-37) Alanine Aminotransferase (ALT/SGPT) 14U/L (16-63) Alkaline Phosphatase 62U/L (46-116) Troponin I Quantitative < 0.017ng/mL (0.000-0.055) < 0.017ng/mL (0.000-0.055) < 0.017ng/mL (0.000-0.055) Total Protein 7.2g/dL (6.4-8.2) Albumin 4.0g/dL (3.4-5.0) Albumin/Globulin Ratio 1.3 (1.0-1.7) Thyroid Stimulating Hormone (TSH) 2.582uIU/mL (0.358-3.74) Triglycerides Level 139mg/dL (0-150) Cholesterol Level 135mg/dL (0-200) LDL Cholesterol, Calculated 75mg/dL (0-100) VLDL Cholesterol, Calculated 28mg/dL (0-40) HDL Cholesterol 32mg/dL (40-60) Cholesterol/HDL Ratio 4.2 Laboratory Tests Test 08/10/16 20:45 08/11/16 03:30 Troponin I Quantitative < 0.017ng/mL (0.000-0.055) < 0.017ng/mL (0.000-0.055) White Blood Count 5.2x10^3/uL (4.0-11.0) Red Blood Count 4.50x10^6/uL (4.30-5.70) Hemoglobin 13.6g/dL (13.0-17.5) Hematocrit 39.8% (39.0-53.0) Mean Corpuscular Volume 88fL (79-100) Mean Corpuscular Hemoglobin 30pg (25-35) Mean Corpuscular Hemoglobin Concent 34g/dL (31-37) Red Cell Distribution Width 13.2% (11.5-14.5) Platelet Count 214x10^3/uL (140-400) Neutrophils (%) (Auto) 44% (31-73) Lymphocytes (%) (Auto) 44% (24-48) Monocytes (%) (Auto) 10% (0-9) Eosinophils (%) (Auto) 2% (0-3) Basophils (%) (Auto) 1% (0-3) Neutrophils # (Auto) 2.3x10^3uL (1.8-7.7) Lymphocytes # (Auto) 2.3x10^3/uL (1.0-4.8) Monocytes # (Auto) 0.5x10^3/uL (0.0-1.1) Eosinophils # (Auto) 0.1x10^3/uL (0.0-0.7) Basophils # (Auto) 0.0x10^3/uL (0.0-0.2) Sodium Level 142mmol/L (136-145) Potassium Level 3.7mmol/L (3.5-5.1) Chloride Level 107mmol/L (98-107) Carbon Dioxide Level 25mmol/L (21-32) Anion Gap 10 (6-14) Blood Urea Nitrogen 17mg/dL (8-26) Creatinine 1.4mg/dL (0.7-1.3) Estimated GFR (Cockcroft-Gault) 54.1 Glucose Level 90mg/dL (70-99) Calcium Level 8.4mg/dL (8.5-10.1) Triglycerides Level 139mg/dL (0-150) Cholesterol Level 135mg/dL (0-200) LDL Cholesterol, Calculated 75mg/dL (0-100) VLDL Cholesterol, Calculated 28mg/dL (0-40) HDL Cholesterol 32mg/dL (40-60) Cholesterol/HDL Ratio 4.2 Brief Hospital Course Mr. Cash is a 50 old [sex] who presented with [ ] 50 y.o male who follows with our neurology grp for severe headaches, possibly migraine? on topamax, was in neurology clinic today, getting meds refilled, but had left sided to midsternal CP at rest, some SOA, maybe broke out in sweats, got him real worried, Very slow to speech and not the best historian. Labs ok, BUt he does have hx MT in the past but no stents, Hx MT, CVA (did rehab, no residual deficits), depression on antidepressants. Pt admitted for r/o ACS Pt watching tv, CP free. Echo already done as ordered by cards MPI also normal, dc home today No new cardiac meds Discharge Information Condition at Discharge: Improved, Stable Disposition/Orders: D/C to Home Scheduled Alprazolam (Alprazolam) 1 TAB PO TID (Reported) Alprazolam (Alprazolam) 1 TAB PO TID (Reported) Alprazolam (Alprazolam) 1 TAB PO DAILY (Reported) Aspirin (Children's Aspirin) 81 MG PO DAILYWBKFT Atorvastatin Calcium (Atorvastatin Calcium) 40 MG PO QHS Fluoxetine Hcl (Fluoxetine Hcl) 1 CAP PO DAILYWBKFT (Reported) Levothyroxine Sodium (Synthroid) 1 TAB PO DAILY (Reported) Levothyroxine Sodium (Synthroid) 1 TAB PO DAILY Meloxicam (Meloxicam) 1 TAB PO DAILY (Reported) Quetiapine Fumarate (Seroquel) 1 TAB PO QHS (Reported) Ranitidine Hcl (Ranitidine Hcl) 1 TAB PO BID (Reported) Simvastatin (Simvastatin) 40 MG PO DAILY (Reported) Topiramate (Topiramate) 1 TAB PO QHS (Reported) Scheduled PRN Hydrocodone Bit/Acetaminophen (Hydrocodone-Apap 5-325 ) 1 TAB PO PRN Q6HRS PRN PRN PAIN (Reported) TATYANA BEST MD Aug 11, 2016 18:02
== END 2016-08-11 16:40 | disposition home or self-care (01) ==
LOC: ER 09:24 → 6 SOUTH 14:20
PROVIDERS: ADMIT Internal Medicine; ATTEND Internal Medicine
DX: R07.9 Chest pain, unspecified (principal); I25.2 Old myocardial infarction; F32.9 Major depressive disorder, single episode, unspecified; G43.909 Migraine, unspecified, not intractable, without status migrainosus; E03.9 Hypothyroidism, unspecified; E78.5 Hyperlipidemia, unspecified; F41.9 Anxiety disorder, unspecified; K21.9 Gastro-esophageal reflux disease without esophagitis; R56.9 Unspecified convulsions; Z79.1 Long term (current) use of non-steroidal anti-inflammatories (NSAID); Z86.73 Personal history of transient ischemic attack (TIA), and cerebral infarction without residual deficits; Z86.74 Personal history of sudden cardiac arrest; Z90.49 Acquired absence of other specified parts of digestive tract
CPT/HCPCS: 36415; 71010; 78452; 80048; 80053; 80061; 84443; 84484; 85027; 85379; 93005; 93017; 93306; 96374; 96376; 99285; A9500; G0378; J2270; J2785; 96375; G0379

== ENCOUNTER → 2017-01-14 | Outpatient (CLI) | payer MEDICARE ==
[~2017-01-14] MED LIST changes: +ALPR0.5T6 PO; +HYDR-2758 PO; -MELO-150 PO; +MELO15TA23 PO; +TOPI100T8 PO
--- NOTE | 2017-01-14 09:23 | KCIC ---
Renal ultrasound dated 01/14/2017. No comparison available. CLINICAL INDICATION: Abnormal kidney function tests. FINDINGS: Right kidney measures 10.1 cm in length. Left kidney measures 11.3 cm in length. No hydronephrosis. No apparent renal mass or shadowing calculus. Urinary bladder is nondistended and not well evaluated. Prostate gland is enlarged. Limited visualized portions of aorta and IVC unremarkable. IMPRESSION: 1. Negative renal ultrasound. 2. Prostatomegaly. Electronically signed by: Kamaljit Parker MD (01/14/2017 9:20 AM) [id number]
== END | disposition home or self-care (01) ==
LOC: KCIC US 08:14
PROVIDERS: ATTEND Nurse Practitioner Family
DX: N40.0 Benign prostatic hyperplasia without lower urinary tract symptoms (principal); R94.4 Abnormal results of kidney function studies
CPT/HCPCS: 76770

== ENCOUNTER 2018-01-23 20:11 | Emergency (ER) | payer MEDICARE ==
[~2018-01-23] VITALS: Ht 182.9 cm; Wt 84.4 kg
[~2018-01-23 20:11] MED LIST changes: -ASPI81TA44 PO; +ASPI81TA59 PO
[2018-01-23 21:11] LABS: BASO % 1 % (0-3); EOS # 0.1 x10^3/uL (0.0-0.7); EOS % 2 % (0-3); HEMOGLOBIN 13.9 g/dL (13.0-17.5); LYMPH # 2.6 x10^3/uL (1.0-4.8); LYMPH % 44 % (24-48); MEAN CORPUSCULAR HEMOGLOBIN 31 pg (25-35); MEAN CORPUSCULAR HGB CONC 35 g/dL (31-37); MEAN CORPUSCULAR VOLUME 90 fL (79-100); MONO # 0.6 x10^3/uL (0.0-1.1); MONO % 11 % (0-9); NEUT # 2.5 x10^3uL (1.8-7.7); NEUT % 42 % (31-73); PLATELET COUNT 205 x10^3/uL (140-400); RED BLOOD COUNT 4.43 x10^6/uL (4.30-5.70); RED CELL DISTRIBUTION WIDTH 13.8 % (11.5-14.5); WHITE BLOOD COUNT 5.8 x10^3/uL (4.0-11.0)
--- NOTE | 2018-01-23 21:16 | PHYS DOC ---
Past Medical History Past Medical History: Anxiety, CVA, Depression, GERD, High Cholesterol, Hypothyroid, PR Additional Past Medical Histor: SI, hyperthermia, heart murmur Past Surgical History: Appendectomy Additional Past Surgical Histo: ortho knee, Alcohol Use: None Drug Use: None Adult General Chief Complaint Chief Complaint: ABDOMINAL PAIN HPI HPI Patient is a 52 year old [f__sex] who presents with [] Review of Systems Review of Systems Constitutional: Denies fever or chills [] Eyes: Denies change in visual acuity, redness, or eye pain [] HENT: Denies nasal congestion or sore throat [] Respiratory: Denies cough or shortness of breath [] Cardiovascular: No additional information not addressed in HPI [] GI: Denies abdominal pain, nausea, vomiting, bloody stools or diarrhea [] : Denies dysuria or hematuria [] Musculoskeletal: Denies back pain or joint pain [] Integument: Denies rash or skin lesions [] Neurologic: Denies headache, focal weakness or sensory changes [] Endocrine: Denies polyuria or polydipsia [] All other systems were reviewed and found to be within normal limits, except as documented in this note. Current Medications Current Medications Current Medications Medications (Trade) Dose Ordered Sig/Gala Start Time Stop Time Status Last Admin Dose Admin Dexamethasone Sodium Phosphate (Decadron) 10 mg 1X ONCE 01/23/18 23:00 01/23/18 23:01 DC 01/23/18 23:00 10 MG Diphenhydramine HCl (Benadryl) 25 mg 1X ONCE 01/23/18 23:00 01/23/18 23:01 DC 01/23/18 22:58 25 MG Info (CONTRAST GIVEN -- Rx MONITORING) 1 each PRN DAILY PRN 01/23/18 23:15 01/25/18 23:14 Iohexol (Omnipaque 300 Mg/ml) 75 ml 1X ONCE 01/23/18 23:15 01/23/18 23:16 DC 01/23/18 00:30 60 ML Ketorolac Tromethamine (Toradol) 30 mg 1X ONCE 01/23/18 23:00 01/23/18 23:01 DC 01/23/18 23:00 30 MG Prochlorperazine Edisylate (Compazine) 10 mg 1X ONCE 01/23/18 23:00 01/23/18 23:01 DC 01/23/18 22:58 10 MG Sodium Chloride 1,000 ml @ 1,000 mls/hr 1X ONCE 01/23/18 22:45 01/23/18 23:44 DC 01/23/18 22:42 1,000 MLS/HR Allergies Allergies Allergies Coded Allergies Type Severity Reaction Last Updated Verified No Known Drug Allergies 01/14/15 No Physical Exam Physical Exam Constitutional: Well developed, well nourished, no acute distress, non-toxic appearance. [] HENT: Normocephalic, atraumatic, bilateral external ears normal, oropharynx moist, no oral exudates, nose normal. [] Eyes: PERRLA, EOMI, conjunctiva normal, no discharge. [] Neck: Normal range of motion, no tenderness, supple, no stridor. [] Cardiovascular:Heart rate regular rhythm, no murmur [] Lungs & Thorax: Bilateral breath sounds clear to auscultation [] Abdomen: Bowel sounds normal, soft, no tenderness, no masses, no pulsatile masses. [] Skin: Warm, dry, no erythema, no rash. [] Back: No tenderness, no CVA tenderness. [] Extremities: No tenderness, no cyanosis, no clubbing, ROM intact, no edema. [] Neurologic: Alert and oriented X 3, normal motor function, normal sensory function, no focal deficits noted. [] Psychologic: Affect normal, judgement normal, mood normal. [] Current Patient Data Vital Signs Vital Signs Date Time Temp Pulse Resp B/P (MAP) Pulse Ox O2 Delivery O2 Flow Rate FiO2 01/23/18 21:14 54 109/66 (80) 98 Room Air 01/23/18 20:15 99.2 18 99.2 Lab Values Laboratory Tests Test 01/23/18 21:02 01/23/18 21:10 White Blood Count 5.8 x10^3/uL (4.0-11.0) Red Blood Count 4.43 x10^6/uL (4.30-5.70) Hemoglobin 13.9 g/dL (13.0-17.5) Hematocrit 40.0 % (39.0-53.0) Mean Corpuscular Volume 90 fL (79-100) Mean Corpuscular Hemoglobin 31 pg (25-35) Mean Corpuscular Hemoglobin Concent 35 g/dL (31-37) Red Cell Distribution Width 13.8 % (11.5-14.5) Platelet Count 205 x10^3/uL (140-400) Neutrophils (%) (Auto) 42 % (31-73) Lymphocytes (%) (Auto) 44 % (24-48) Monocytes (%) (Auto) 11 % (0-9) H Eosinophils (%) (Auto) 2 % (0-3) Basophils (%) (Auto) 1 % (0-3) Neutrophils # (Auto) 2.5 x10^3uL (1.8-7.7) Lymphocytes # (Auto) 2.6 x10^3/uL (1.0-4.8) Monocytes # (Auto) 0.6 x10^3/uL (0.0-1.1) Eosinophils # (Auto) 0.1 x10^3/uL (0.0-0.7) Basophils # (Auto) 0.0 x10^3/uL (0.0-0.2) Sodium Level 138 mmol/L (136-145) Potassium Level 3.6 mmol/L (3.5-5.1) Chloride Level 105 mmol/L (98-107) Carbon Dioxide Level 23 mmol/L (21-32) Anion Gap 10 (6-14) Blood Urea Nitrogen 12 mg/dL (8-26) Creatinine 1.3 mg/dL (0.7-1.3) Estimated GFR (Cockcroft-Gault) 58.4 BUN/Creatinine Ratio 9 (6-20) Glucose Level 98 mg/dL (70-99) Calcium Level 8.3 mg/dL (8.5-10.1) L Total Bilirubin 0.3 mg/dL (0.2-1.0) Aspartate Amino Transferase (AST) 19 U/L (15-37) Alanine Aminotransferase (ALT) 21 U/L (16-63) Alkaline Phosphatase 69 U/L (46-116) Total Protein 6.4 g/dL (6.4-8.2) Albumin 3.5 g/dL (3.4-5.0) Albumin/Globulin Ratio 1.2 (1.0-1.7) Lipase 134 U/L (73-393) Urine Collection Type Unknown Urine Color Yellow Urine Clarity Clear Urine pH 6.5 Urine Specific [place] 1.010 Urine Protein Negative mg/dL (NEG-TRACE) Urine Glucose (UA) Negative mg/dL (NEG) Urine Ketones (Stick) Negative mg/dL (NEG) Urine Blood Negative (NEG) Urine Nitrite Negative (NEG) Urine Bilirubin Negative (NEG) Urine Urobilinogen Dipstick 0.2 mg/dL (0.2 mg/dL) Urine Leukocyte Esterase Negative (NEG) Urine RBC 0 /HPF (0-2) Urine WBC 0 /HPF (0-4) Urine Bacteria 0 /HPF (0-FEW) Laboratory Tests 01/23/18 21:02 Laboratory Tests 01/23/18 21:02 EKG EKG [] Radiology/Procedures Radiology/Procedures IMAGING REPORT Signed PATIENT: BORA MCLEAN ACCOUNT: [id number] : 1965 LOCATION: ER AGE: 52 SEX: M EXAM STATUS: REG ER ORD. PHYSICIAN: KEYSHAWN FUENTES APRN REASON: cant move legs PROCEDURE: THORACIC SPINE WO CONTRAST MRI thoracic spine 01/23/2018 Clinical indication: Inability to move legs. COMPARISON: None. TECHNIQUE: Multisequence, multiplanar MR imaging of the thoracic spine was obtained without contrast. FINDINGS: Examination of T1-T4 is limited due to decrease signal on all sequences. There is a short segment syrinx posterior to inferior aspect of T8 measuring 1.0 cm CC length series 11/image 7. Vertebral body heights are maintained. No suspicious thoracic marrow abnormality from T5 through T12. Mild mid thoracic spondylosis, greatest at T9-T10, without significant spinal canal or neural foraminal narrowing. IMPRESSION: 1. Short segment syrinx in the thoracic cord posterior to T8. 2. No significant spinal canal or neural foraminal narrowing. Electronically signed by: Megha Miller MD (01/24/2018 1:51 AM) [facility] DICTATED and SIGNED BY: MEGHA MILLER MD DATE: 01/24/18 0143 []IMAGING REPORT IMAGING REPORT Signed PATIENT: BORA MCLEAN ACCOUNT: [id number] : 1965 LOCATION: ER AGE: 52 SEX: M EXAM STATUS: REG ER ORD. PHYSICIAN: KEYSHAWN FUENTES APRN REASON: head ache PROCEDURE: CT HEAD WO CONTRAST CT head without contrast 01/24/2018 CLINICAL INDICATION: Headache. COMPARISON: None. TECHNIQUE: Multiple CT images of the head were obtained without contrast. *One or more of the following individualized dose reduction techniques were utilized for this examination: 1. Automated exposure control. 2. Adjustment of the mA and/or kV according to patient size. 3. Use of iterative reconstruction technique. FINDINGS: No acute intracranial hemorrhage or extra-axial fluid collection. No midline shift. The basal cisterns are patent. Jimenez-white matter interfaces are maintained. IMPRESSION: No acute intracranial hemorrhage. Electronically signed by: Megha Miller MD (01/24/2018 12:03 AM) [facility] DICTATED and SIGNED BY: MEGHA MILLER MD DATE: 01/24/18 0001 Signed PATIENT: BORA MCLEAN ACCOUNT: [id number] : 1965 LOCATION: ER AGE: 52 SEX: M EXAM STATUS: REG ER ORD. PHYSICIAN: KEYSHAWN FUENTES APRN REASON: head ache PROCEDURE: CT ABD PELV W/ IV CONTRST ONLY CT abdomen and pelvis with contrast 01/24/2018 CLINICAL INDICATION: Abdominal pain. COMPARISON: None. TECHNIQUE: Multiple CT images of the abdomen and pelvis were obtained following the intravenous and ministration of 60 mL Omnipaque 300. *One or more of the following individualized dose reduction techniques were utilized for this examination: 1. Automated exposure control. 2. Adjustment of the mA and/or kV according to patient size. 3. Use of iterative reconstruction technique. FINDINGS: Heart size is normal. Minimal atelectasis in the dependent lung bases. Liver, gallbladder, spleen, adrenal glands, pancreas and kidneys are unremarkable. Abdominal aorta normal in caliber. No retroperitoneal or mesenteric lymphadenopathy. Small and large bowel loops are normal in caliber without obstruction. Postsurgical changes of an appendectomy. No abdominal free fluid. No pneumoperitoneum. Urinary bladder, prostate and seminal vesicles are unremarkable. No iliac or inguinal lymphadenopathy. There are no destructive osseous lesions. IMPRESSION: No CT evidence of acute abdominal or pelvic process. Electronically signed by: Megha Miller MD (01/24/2018 1:43 AM) [facility] DICTATED and SIGNED BY: MEGHA MILLER MD DATE: 01/24/18 0139 IMAGING REPORT Signed PATIENT: BORA MCLEAN ACCOUNT: [id number] : 1965 LOCATION: ER AGE: 52 SEX: M EXAM STATUS: REG ER ORD. PHYSICIAN: KEYSHAWN FUENTES APRN REASON: DECREASED SENSATION OF BLE, CAN'T MOVE LEGS PROCEDURE: LUMBAR SPINE WO CONTRAST MRI lumbar spine without contrast 01/23/2018 Clinical indication: Decreased sensation bilateral lower extremities, cannot move lower extremities. COMPARISON: None. TECHNIQUE: Multisequence multiplanar MR imaging of the lumbar spine was obtained without contrast. FINDINGS: Examination assumes 5 lumbar type vertebral bodies with the 1st considered L1. Vertebral body heights are maintained. No suspicious marrow abnormality. Small posterior L5-S1 intervertebral disc T2 hyperintensity zone. Mild disc degeneration at L5-S1 with disc desiccation and disc space narrowing and marginal osteophyte formation with minimal degenerative endplate changes. Disc desiccation at T12-L1, L2-L3 and L3-L4. The paraspinal soft tissues are unremarkable. Conus medullaris is normal in appearance and position terminating posterior to T12-L1. Segmental analysis: At T12-L1, no significant spinal canal or neural foraminal narrowing. At L1-L2, no significant spinal canal or neural foraminal narrowing. At L2-L3, shallow central disc bulging without significant spinal canal or neural foraminal narrowing. At L3-L4, shallow concentric disc bulging without significant spinal canal or neural foraminal narrowing. At L4-L5, right subarticular, foraminal and extraforaminal disc osteophyte complex resulting in right lateral recess narrowing. No significant spinal canal or neural foraminal narrowing. At L5-S1, shallow central disc protrusion without significant spinal canal or neural foraminal narrowing. IMPRESSION: 1. No high-grade spinal canal or neural foraminal narrowing. 2. At L3-L4, asymmetric right disc ossify complex resulting in right lateral recess narrowing. Electronically signed by: Megha Miller MD (01/23/2018 11:31 PM) [facility] DICTATED and SIGNED BY: MEGHA MILLER MD DATE: 01/23/18 4727 Course & Med Decision Making Course & Med Decision Making Pertinent Labs and Imaging studies reviewed. (See chart for details) [] Sonia Disclaimer Sonia Disclaimer This electronic medical record was generated, in whole or in part, using a voice recognition dictation system. Departure Departure Impression: Primary Impression: Migraine headache Additional Impressions: Nonspecific abdominal pain Loss of feeling or sensation Disposition: 01 HOME, SELF-CARE Condition: IMPROVED Referrals: DEVANTE FINNEY MD (PCP) Patient Instructions: Abdominal Pain (Nonspecific), Migraine Headache Additional Instructions: You were evaluated by neurosurgeon Dr. Edmond in the emergency Department [facility]. An MRI of your thoracic and lumbar spine did not show any acute process. CT of your abdomen did not show any acute process. Follow-up with your neurologist later this week as already planned. Follow-up with her primary care doctor in the next 1-2 days. Return to the emergency room if your symptoms worsen. Problem Qualifiers Primary Impression: Migraine headache Migraine type: unspecified Status migrainosus presence: without status migrainosus Intractability: not intractable Qualified Codes: G43.909 - Migraine, unspecified, not intractable, without status migrainosus KEYSHAWN FUENTES PLANT CHANGER Jan 23, 2018 21:16
[2018-01-23 21:19] LABS: BILIRUBIN,URINE NEGATIVE (NEG); CLARITY,URINE CLEAR; COLOR,URINE YELLOW; NITRITE,URINE NEGATIVE (NEG); PH,URINE 6.5; PROTEIN,URINE NEGATIVE (NEG-TRACE); UROBILINOGEN,URINE 0.2 mg/dL (0.2 mg/dL)
[2018-01-23 21:22] LABS: CALCIUM 8.3 mg/dL (8.5-10.1); CREATININE 1.3 mg/dL (0.7-1.3); GFR 58.4; POTASSIUM 3.6 mmol/L (3.5-5.1)
[2018-01-23 21:26] LABS: BACTERIA,URINE 0 /HPF (0-FEW); RBC,URINE 0 /HPF (0-2); WBC,URINE 0 /HPF (0-4)
[2018-01-23 21:29] LABS: ALBUMIN 3.5 g/dL (3.4-5.0); ALBUMIN/GLOBULIN RATIO 1.2 (1.0-1.7); TOTAL BILIRUBIN 0.3 mg/dL (0.2-1.0); TOTAL PROTEIN 6.4 g/dL (6.4-8.2)
[2018-01-23] MEDS ORDERED: IV NORMAL SALINE 1000ML BAG 1,000 ML IV ONE (22:45)
[2018-01-23] MEDS ORDERED: PROCHLORPERAZINE 10 MG/2 ML VIAL. IV ONE (23:00)
[2018-01-23] MEDS ORDERED: DEXAMETHASONE SOD PHOS 20 MG/5 ML VIAL. IV ONE (23:00)
[2018-01-23] MEDS ORDERED: KETOROLAC 15 MG/ML VIAL. IV ONE (23:00)
[2018-01-23] MEDS ORDERED: diphenhydrAMINE 50 MG/ML VIAL IVP ONE (23:00)
[2018-01-23] MEDS ORDERED: IOHEXOL 300 MG/ML 100ML VIAL. IV ONE (23:15)
[2018-01-23] MEDS ORDERED: CONTRAST GIVEN. MC PRN (23:15)
--- NOTE | 2018-01-23 23:34 | RAD ---
MRI lumbar spine without contrast 01/23/2018 Clinical indication: Decreased sensation bilateral lower extremities, cannot move lower extremities. COMPARISON: None. TECHNIQUE: Multisequence multiplanar MR imaging of the lumbar spine was obtained without contrast. FINDINGS: Examination assumes 5 lumbar type vertebral bodies with the 1st considered L1. Vertebral body heights are maintained. No suspicious marrow abnormality. Small posterior L5-S1 intervertebral disc T2 hyperintensity zone. Mild disc degeneration at L5-S1 with disc desiccation and disc space narrowing and marginal osteophyte formation with minimal degenerative endplate changes. Disc desiccation at T12-L1, L2-L3 and L3-L4. The paraspinal soft tissues are unremarkable. Conus medullaris is normal in appearance and position terminating posterior to T12-L1. Segmental analysis: At T12-L1, no significant spinal canal or neural foraminal narrowing. At L1-L2, no significant spinal canal or neural foraminal narrowing. At L2-L3, shallow central disc bulging without significant spinal canal or neural foraminal narrowing. At L3-L4, shallow concentric disc bulging without significant spinal canal or neural foraminal narrowing. At L4-L5, right subarticular, foraminal and extraforaminal disc osteophyte complex resulting in right lateral recess narrowing. No significant spinal canal or neural foraminal narrowing. At L5-S1, shallow central disc protrusion without significant spinal canal or neural foraminal narrowing. IMPRESSION: 1. No high-grade spinal canal or neural foraminal narrowing. 2. At L3-L4, asymmetric right disc ossify complex resulting in right lateral recess narrowing. Electronically signed by: Tulio Miller MD (01/23/2018 11:31 PM) [facility]
--- NOTE | 2018-01-24 00:07 | RAD ---
CT head without contrast 01/24/2018 CLINICAL INDICATION: Headache. COMPARISON: None. TECHNIQUE: Multiple CT images of the head were obtained without contrast. *One or more of the following individualized dose reduction techniques were utilized for this examination: 1. Automated exposure control. 2. Adjustment of the mA and/or kV according to patient size. 3. Use of iterative reconstruction technique. FINDINGS: No acute intracranial hemorrhage or extra-axial fluid collection. No midline shift. The basal cisterns are patent. Jimenez-white matter interfaces are maintained. IMPRESSION: No acute intracranial hemorrhage. Electronically signed by: Tulio Miller MD (01/24/2018 12:03 AM) [facility]
--- NOTE | 2018-01-24 01:47 | RAD ---
CT abdomen and pelvis with contrast 01/24/2018 CLINICAL INDICATION: Abdominal pain. COMPARISON: None. TECHNIQUE: Multiple CT images of the abdomen and pelvis were obtained following the intravenous and ministration of 60 mL Omnipaque 300. *One or more of the following individualized dose reduction techniques were utilized for this examination: 1. Automated exposure control. 2. Adjustment of the mA and/or kV according to patient size. 3. Use of iterative reconstruction technique. FINDINGS: Heart size is normal. Minimal atelectasis in the dependent lung bases. Liver, gallbladder, spleen, adrenal glands, pancreas and kidneys are unremarkable. Abdominal aorta normal in caliber. No retroperitoneal or mesenteric lymphadenopathy. Small and large bowel loops are normal in caliber without obstruction. Postsurgical changes of an appendectomy. No abdominal free fluid. No pneumoperitoneum. Urinary bladder, prostate and seminal vesicles are unremarkable. No iliac or inguinal lymphadenopathy. There are no destructive osseous lesions. IMPRESSION: No CT evidence of acute abdominal or pelvic process. Electronically signed by: Tulio Miller MD (01/24/2018 1:43 AM) [facility]
--- NOTE | 2018-01-24 01:55 | RAD ---
MRI thoracic spine 01/23/2018 Clinical indication: Inability to move legs. COMPARISON: None. TECHNIQUE: Multisequence, multiplanar MR imaging of the thoracic spine was obtained without contrast. FINDINGS: Examination of T1-T4 is limited due to decrease signal on all sequences. There is a short segment syrinx posterior to inferior aspect of T8 measuring 1.0 cm CC length series 11/image 7. Vertebral body heights are maintained. No suspicious thoracic marrow abnormality from T5 through T12. Mild mid thoracic spondylosis, greatest at T9-T10, without significant spinal canal or neural foraminal narrowing. IMPRESSION: 1. Short segment syrinx in the thoracic cord posterior to T8. 2. No significant spinal canal or neural foraminal narrowing. Electronically signed by: Tulio Miller MD (01/24/2018 1:51 AM) [facility]
[2018-01-24 02:10] VITALS: BP 138/77
--- NOTE | 2018-01-24 13:49 | EKG ---
[facility] [address] [place] [address] Test Date: 2018-01-23 Test Time: 20:53:43 Pat Name: BORA MCLEAN Department: Room: Gender: M [employer] Manager: : 1965 Requested By: KRISH PCP Order Number: [id number] Reading MD: Glenn Cid MD Measurements Intervals [place] Rate: 54 P: 51 [place]: 168 QRS: 11 QRSD: 80 T: 24 QT: 422 QTc: 405 Interpretive Statements SINUS RHYTHM Electronically Signed On 01-31-2018 10:29:45 CDT by Glenn Cid MD
--- NOTE | 2018-01-25 14:41 | CONS ---
DATE OF CONSULTATION: 01/24/2018 This was an emergency consultation and the patient was seen through the ER. CHIEF COMPLAINT: Paraplegia. HISTORY OF PRESENT ILLNESS: The patient is a 52-year-old man who said he was working in his yard and he bent over to draft roller picker a melon and developed a sharp pain in his lower back and abdomen. He said he walked into the house and then beginning shortly thereafter noted weakness in his legs, which increased inability to ambulate or move or feel his legs. He was brought to the Emergency Room and evaluated and MRI scans were ordered of the thoracic and lumbar spine. Because of concern of cauda equina syndrome, I went in to see the patient arriving, but just before midnight, but the patient was on the MRI scan and I did not see him until 12:30 a.m. on 01/24/2018. PAST MEDICAL HISTORY: Includes anxiety, CVA, depression, GERD, hypercholesterolemia, hypothyroid disease, history of an NC. PAST SURGICAL HISTORY: Appendectomy, knee surgery. SOCIAL HISTORY: Alcohol use: None. Drug use: None. MEDICATIONS: Reviewed and were noncontributory. See the MRAD. ALLERGIES: NKDA. REVIEW OF SYSTEMS: Twelve points were obtained from the chart and were negative other than outlined above. PHYSICAL EXAMINATION: When I initially examined the patient, he was unable to move his legs, but after I explained that his imaging studies, which included a thoracic and lumbar MRI scans as well as the sagittal view on the localizing study, which included the cervical spine that there were no compressive lesions seen. He began to improve with regard to being able to perceive light touch, which improved quickly to normal. He then began to move his lower extremities and said that they felt stronger quickly. He developed better than antigravity and had 4+/5 strength in both lower extremities when I last left him. He had previously undergone a rectal exam, which demonstrated normal tone per the Emergency Room PA. LABORATORY DATA: I reviewed MRI scans of the lumbar spine in which no significant stenosis was seen. I reviewed thoracic MRI in which no significant stenosis was seen and the cervical sales associate key holder view in which no cervical stenosis was seen. My impression is that I do not see a compressive lesion explaining his lower extremity weakness. It may possibly be hysterical paralysis, although has a diagnosis of exclusion. I was comforted by the fact, however, that there was no surgical problem and that his exam was improving. DISPOSITION: He is going back to the Emergency Room. Assuming that he is able to ambulate and his problems resolve, he will follow up with family physician and continue with his regular followup. There were no specific reasons for him to followup with me unless a new problem develops. MIR RYAN MD DR: KAITY/kael JOB#: [id number] / [id number]
== END 2018-01-24 02:16 | disposition home or self-care (01) ==
LOC: ER 20:11
DX: R10.9 Unspecified abdominal pain (principal); G43.909 Migraine, unspecified, not intractable, without status migrainosus; R20.8 Other disturbances of skin sensation; K21.9 Gastro-esophageal reflux disease without esophagitis; E03.9 Hypothyroidism, unspecified; E78.00 Pure hypercholesterolemia, unspecified; F41.9 Anxiety disorder, unspecified; I25.2 Old myocardial infarction; Z90.89 Acquired absence of other organs
CPT/HCPCS: 36415; 70450; 72146; 72148; 74177; 80053; 81001; 83690; 85025; 93005; 96374; 96375; 99285; J0780; J1100; J1200; J1885; J7030; Q9967